=== PATIENT | female | born 1935 | race Hispanic/Latino ===

== ENCOUNTER 2019-05-02 05:56 | Day surgery (SDC) | payer MEDICARE, MEDICAID ==
[2019-05-01 11:33] VITALS: BMI 18.5
[2019-05-02 06:37] LABS: #Eosinphils 0.2 thou/uL (0.0-0.7); #Lymphocytes 1.1 thou/uL (1.20-3.40); #Monocytes 0.4 thou/uL (0.11-0.59); #Neutrophils 2.1 thou/uL (1.40-6.50); %Basophils 0.8 % (0.0-1.0); %Eosinophils 5.9 % (0.0-10.0); %Lymphocytes 28.2 % (21.0-51.0); %Monocytes 10.8 % (0.0-10.0); %Neutrophils 54.4 % (42.0-75.0); Hemoglobin 9.9 g/dL (12.0-16.0); Mean Corpuscular HGB CONC 32.4 g/dL (32.0-36.0); Mean Corpuscular Hemoglobin 33.1 pg (27.0-31.0); Mean Platelet Volume 7.4 fL (7.4-10.4); Platelet Count 155 thou/uL (130-400); RBC Distribution Width 13.3 % (11.5-14.5); White Blood Cell (WBC) Count 3.8 thou/uL (4.8-10.8)
[2019-05-02 07:00] LABS: Anion Gap 11 mmol/L (10-20); BUN (Urea Nitrogen) 18 mg/dL (9.8-20.1); Calc. Creatinine Clearance 28 mL/min (70-130); Calcium 9.2 mg/dL (7.8-10.44); Carbon Dioxide 26 mmol/L (23-31); Chloride 108 mmol/L (98-107); Estimated GFR-MDRD 52; Glucose 97 mg/dL (83-110); Potassium 3.7 mmol/L (3.5-5.1); Sodium 141 mmol/L (136-145)
--- NOTE | 2019-05-02 09:37 | OP ---
DATE OF PROCEDURE: 05/02/2019 PROCEDURE PERFORMED: Transesophageal echocardiogram. INDICATIONS: Cristiana Valle is an 83-year-old woman with a mass noted in the right atrium. DESCRIPTION OF PROCEDURE: The patient was taken to the PACU. The patient was sedated by Anesthesiology. A transesophageal probe was placed into the distal esophagus and stomach. Echocardiographic images were obtained. The transesophageal probe was removed. FINDINGS: 1. Normal left ventricular systolic function. 2. Normal aortic valve. 3. The mitral valve leaflets are redundant with mild prolapse. 4. Mild mitral regurgitation. 5. Mild tricuspid regurgitation. 6. A 0.7-cm mass was noted attached to the pacemaker lead in the right atrium. 7. Atherosclerotic debris in the descending aorta. IMPRESSION: A thin 0.7-cm mass noted attached to the right ventricular pacemaker lead suggestive of a vegetation, but cannot exclude thrombus. Job ID: [id number]
[2019-05-02] MEDS ORDERED: PROPOFOL 200 MG/20 ML VIAL ONE (14:43)
== END 2019-05-02 10:20 | disposition home or self-care (01) ==
LOC: CCL 05:56
PROVIDERS: ATTEND Internal Medicine Cardiovascular Disease
PROC: B24BZZ4 Ultrasonography of Heart with Aorta, Transesophageal (ICD-10-PCS; principal; 2019-05-02)
DX: I11.9 Hypertensive heart disease without heart failure (principal); I70.0 Atherosclerosis of aorta; I08.1 Rheumatic disorders of both mitral and tricuspid valves; I48.0 Paroxysmal atrial fibrillation; E03.9 Hypothyroidism, unspecified; I49.5 Sick sinus syndrome; G51.0 Bell's palsy; Z79.01 Long term (current) use of anticoagulants; Z79.899 Other long term (current) drug therapy; Z95.0 Presence of cardiac pacemaker
CPT/HCPCS: 36415; 80048; 85025; 87040; 93312; J2704

== ENCOUNTER 2019-05-18 13:02 | Emergency (ER) | payer MEDICARE, MEDICAID ==
--- NOTE | 2019-05-18 13:45 | RAD ---
RIGHT SHOULDER 3 VIEWS: Date: 05/18/19 HISTORY: Right shoulder pain. FINDINGS/IMPRESSION: No fracture, dislocation, or bony destruction is seen. There are mild degenerative changes in the acr omioclavicular joint. POS: DANIS
[2019-05-18] MEDS ORDERED: Ketorolac Tromethamine 30 MG/ML VIAL ONE (14:37)
== END 2019-05-18 15:15 | disposition home or self-care (01) ==
LOC: ERS 13:02
DX: M25.511 Pain in right shoulder (principal); D64.9 Anemia, unspecified; F03.90 Unspecified dementia, unspecified severity, without behavioral disturbance, psychotic disturbance, mood disturbance, and anxiety; I10 Essential (primary) hypertension; E03.9 Hypothyroidism, unspecified; G51.0 Bell's palsy; Z79.01 Long term (current) use of anticoagulants; Z79.899 Other long term (current) drug therapy
CPT/HCPCS: 96372; J1885

== ENCOUNTER 2019-06-01 17:36 | Emergency (ER) | payer MEDICARE ==
[2019-06-01] MEDS ORDERED: Ketorolac Tromethamine 30 MG/ML VIAL ONE (18:26)
--- NOTE | 2019-06-01 18:31 | RAD ---
Radiograph right shoulder 3 views: DATE: 06/01/2019 HISTORY: Right shoulder pain in 83-year-old female. FINDINGS: There is a Hill-Sachs defect at the lateral aspect of humeral head. No fracture, dislocation, or subl uxation. Degenerative changes at glenohumeral joint and AC joint are mild. Right subclavian pacemaker. No interval change overall since 05/18/2019. Osteopenia. IMPRESSION: 1. No acute fracture. 2. Hill-Sachs defect is evidence for previous anterior-inferior shoulder dislocation.
[2019-06-01] MEDS ORDERED: HYDROcodone/Acetaminophen 5/325 mg Tablet ONE ×2 (18:59→20:18)
--- NOTE | 2019-06-01 19:49 | CT ---
EXAM: CT right shoulder without contrast PROVIDED CLINICAL HISTORY: Pain COMPARISON: None FINDINGS: There is a large glenohumeral joint effusion. There is no evidence for fracture or other acute osseous abnormality. No lytic or blastic bony change s are seen. The glenohumeral relationship appears normal. The glenohumeral joint space is preserved. No significant regional degenerative change. Right-sided cardiac pacing device is noted. The visualized right lung is free of significant opacity. IMPRESSION: Large glenohumeral joint effusion without evidence for an acute osseous abnormality.
== END 2019-06-01 20:35 | disposition home or self-care (01) ==
LOC: ERS 17:36
DX: M25.411 Effusion, right shoulder (principal); I49.9 Cardiac arrhythmia, unspecified; I48.91 Unspecified atrial fibrillation; E03.9 Hypothyroidism, unspecified; D64.9 Anemia, unspecified; I10 Essential (primary) hypertension; F03.90 Unspecified dementia, unspecified severity, without behavioral disturbance, psychotic disturbance, mood disturbance, and anxiety
CPT/HCPCS: 96372; J1885

== ENCOUNTER 2019-07-06 11:02 | Outpatient (CLI) | payer MEDICARE ==
--- NOTE | 2019-07-06 12:03 | BD ---
EXAM: Bone densitometry using DEXA HISTORY: 83 yo female. Osteoporosis FINDINGS: L1--bone mineral density 0.661 g/sq cm; T score -3.0 ; Z score -0.5 L2--bone mineral density 0.815 g/sq cm; T score -1.9 ; Z score 0.8 L3--bone mineral density 0.930 g/sq cm; T score -1.4 ; Z score 1.5 L4--bone mineral density 0.833 g/sq cm; T score -2.1 ; Z score 0.9 Total L1-L4--bone mineral density 0.8, 0.6 g/sq cm; T score -2.1 ; Z score 0.7 Left femoral neck--bone mineral density0.560; T score -2.6 ; Z score -0.1 Total proximal left femur--bone mineral density 0.616; T score -2.7 ; Z score -0.4 IMPRESSION: Osteoporosis
== END 2019-07-06 11:03 | disposition home or self-care (01) ==
LOC: BICMAMMO 11:02
PROVIDERS: ATTEND Student in an Organized Health Care Education/Training Program
DX: Z13.820 Encounter for screening for osteoporosis (principal); M19.90 Unspecified osteoarthritis, unspecified site; M81.0 Age-related osteoporosis without current pathological fracture
CPT/HCPCS: 77080

== ENCOUNTER 2019-07-13 13:21 | Emergency (ER) | payer MEDICARE ==
[2019-07-13] MEDS ORDERED: HYDROcodone/Acetaminophen 5/325 mg Tablet ONE ×2 (13:47→14:38)
[2019-07-13] MEDS ORDERED: Ketorolac Tromethamine 30 MG/ML VIAL ONE (13:47)
[2019-07-13] MEDS ORDERED: Dexamethasone 10 MG/ML VIAL ONE (14:38)
--- NOTE | 2019-07-13 15:49 | RAD ---
Exam: XR Shoulder Rt 3 View STANDARD HISTORY: Right shoulder pain. COMPARISON: 06/01/2019 FINDINGS: Again noted is mild deformity involving the lateral aspect of the right humeral head unchanged from p rior exam. No fracture or dislocation is seen. Right subclavian cardiac pacemaking device remains in place. Views of the right shoulder are stable c ompared to prior exam. IMPRESSION: Stable views right shoulder without evidence of an acute osseous abnormality.
--- NOTE | 2019-07-13 15:50 | RAD ---
2 view chest: 07/13/2019] Comparison:10/01/2018 HISTORY: Dementia, right shoulder pain FINDINGS: Stable dual lead right-sided transvenous pacing device. No pneumothorax, pleural fluid, foc al consolidation, or alveolar edema. Heart and mediastinal contours are stable. There is atherosclerotic calcification of the abdominal aorta. IMPRESSION: No acute findings.
--- NOTE | 2019-07-13 16:08 | RAD ---
THREE VIEWS OF THE CERVICAL SPINE: 07/13/19 COMPARISON: None. HISTORY: Dementia and right shoulder pain. FINDINGS: Three views of the cervical spine shows severe degenerative changes throughout the cervical spine wit h intervertebral disc space narrowing and osteophyte formation. There is no evidence of acute fractur e or subluxation. No prevertebral soft tissue swelling is seen. Posterior facet arthrosis is also see n throughout the cervical spine. IMPRESSION: Severe degenerative changes in the cervical spine without acute osseous abnormality. POS: TPC
[2019-07-13 16:19] LABS: #Eosinphils 0.1 thou/uL (0.0-0.7); #Lymphocytes 1.1 thou/uL (1.20-3.40); #Monocytes 0.5 thou/uL (0.11-0.59); #Neutrophils 7.8 thou/uL (1.40-6.50); %Basophils 0.5 % (0.0-1.0); %Eosinophils 1.4 % (0.0-10.0); %Lymphocytes 11.3 % (21.0-51.0); %Monocytes 5.1 % (0.0-10.0); %Neutrophils 81.7 % (42.0-75.0); Hemoglobin 11.2 g/dL (12.0-16.0); Mean Corpuscular HGB CONC 32.4 g/dL (32.0-36.0); Mean Corpuscular Hemoglobin 34.1 pg (27.0-31.0); Mean Platelet Volume 7.2 fL (7.4-10.4); Platelet Count 241 thou/uL (130-400); RBC Distribution Width 14.2 % (11.5-14.5); Red Blood Cell (RBC) Count 3.28 mill/uL (4.20-5.40); White Blood Cell (WBC) Count 9.5 thou/uL (4.8-10.8)
[2019-07-13 16:35] LABS: ALT (SGPT) 16 U/L (8-55); AST (SGOT) 23 U/L (5-34); Albumin 4.7 g/dL (3.4-4.8); Alkaline Phosphatase 96 U/L (40-110); Anion Gap 17 mmol/L (10-20); BUN (Urea Nitrogen) 22 mg/dL (9.8-20.1); Bilirubin, Total 0.5 mg/dL (0.2-1.2); Calc. Creatinine Clearance 0 mL/min (70-130); Calcium 10.2 mg/dL (7.8-10.44); Carbon Dioxide 25 mmol/L (23-31); Chloride 102 mmol/L (98-107); Estimated GFR-MDRD 46; Globulin 3.5 g/dL (2.4-3.5); Glucose 142 mg/dL (83-110); Lipase 52 U/L (8-78); Protein, Total 8.2 g/dL (6.0-8.3); Sodium 140 mmol/L (136-145)
[2019-07-13 16:36] LABS: Bilirubin Negative (Negative); Blood, Urine Negative (Negative); Clarity Clear (Clear); Glucose, Urine (Dipstick) Normal (Negative); Leukocyte Negative Leu/uL (Negative); Nitrite Negative (Negative); Protein, Urine (Dipstick) 20 mg/dL (Neg-Trace); Urobilinogen Normal mg/dL (Less than 2)
[2019-07-13 16:41] LABS: Anisocytosis SLIGHT = 6-15 cells (100X) (0-5/hpf); MDiff Complete? YES; Macrocytosis SLIGHT = 6-15 cells (100X) (0-5/hpf); Platelet Morphology Comment Appears Adequate; Polychromasia SLIGHT = 2-3 cells (100X) (0-2/hpf)
== END 2019-07-13 16:53 | disposition home or self-care (01) ==
LOC: ERS 13:21
DX: M25.511 Pain in right shoulder (principal); I48.91 Unspecified atrial fibrillation; E03.9 Hypothyroidism, unspecified; D64.9 Anemia, unspecified; G51.0 Bell's palsy; I10 Essential (primary) hypertension; F03.90 Unspecified dementia, unspecified severity, without behavioral disturbance, psychotic disturbance, mood disturbance, and anxiety; Z86.73 Personal history of transient ischemic attack (TIA), and cerebral infarction without residual deficits; Z79.02 Long term (current) use of antithrombotics/antiplatelets; Z79.899 Other long term (current) drug therapy
CPT/HCPCS: 36415; 71046; 72040; 80053; 81003; 83690; 85025; 87086; 93005; 96372; J1100; J1885

== ENCOUNTER 2019-08-30 01:46 | Emergency (ER) | payer MEDICARE ==
[2019-08-30] MEDS ORDERED: Ketorolac Tromethamine 30 MG/ML VIAL ONE (01:57)
== END 2019-08-30 02:20 | disposition home or self-care (01) ==
LOC: ERS 01:46
DX: M25.511 Pain in right shoulder (principal); I48.91 Unspecified atrial fibrillation; E03.9 Hypothyroidism, unspecified; G51.0 Bell's palsy; D64.9 Anemia, unspecified; I10 Essential (primary) hypertension; F03.90 Unspecified dementia, unspecified severity, without behavioral disturbance, psychotic disturbance, mood disturbance, and anxiety; Z79.01 Long term (current) use of anticoagulants; Z79.899 Other long term (current) drug therapy
CPT/HCPCS: 96372; 99283; J1885

== ENCOUNTER 2019-09-25 18:10 | Emergency (ER) | payer MEDICARE ==
[2019-09-25] MEDS ORDERED: Morphine 4 MG/ML VIAL ONE (18:32)
--- NOTE | 2019-09-25 19:00 | RAD ---
PORTABLE CHEST: Indications: Right shoulder pain. Comparison: 07-13-2019 FINDINGS: Lung gomez are clear. Mild cardiomegaly is stable. Dual-lead pacemaker device is unchanged. Vascular markings normal. No acute lung process. There is deformity of the right humeral head suggesting old injury or surgery. AC joints are normally aligned. Mild degenerative changes at both shoulders. IMPRESSION: No acute process. POS: AGW
--- NOTE | 2019-09-25 19:02 | RAD ---
RIGHT SHOULDER TWO VIEWS: Comparison: 07-13-2019 FINDINGS: Deformity of the humeral head. There are degenerative change at the glenohumeral joint with spurring from the humeral head. Deformity is stable from prior exam and suggests old injury and/or surgery. Th e AC joint is normally aligned. There has been no interval change. IMPRESSION: Stable findings at right shoulder with degenerative change and deformities again noted. POS: AGW
== END 2019-09-25 19:42 | disposition home or self-care (01) ==
LOC: ERS 18:10
DX: M19.011 Primary osteoarthritis, right shoulder (principal); I49.9 Cardiac arrhythmia, unspecified; I48.91 Unspecified atrial fibrillation; E03.9 Hypothyroidism, unspecified; D64.9 Anemia, unspecified; G51.0 Bell's palsy; I10 Essential (primary) hypertension; F03.90 Unspecified dementia, unspecified severity, without behavioral disturbance, psychotic disturbance, mood disturbance, and anxiety; Z79.899 Other long term (current) drug therapy; Z79.01 Long term (current) use of anticoagulants
CPT/HCPCS: 71045; 96372; J2270

== ENCOUNTER 2019-10-03 12:23 | Emergency (ER) | payer MEDICARE ==
[2019-10-03] MEDS ORDERED: Morphine 4 MG/ML VIAL ONE (13:31)
[2019-10-03] MEDS ORDERED: Ondansetron ODT 4 MG TAB ONE (13:31)
== END 2019-10-03 14:05 | disposition home or self-care (01) ==
LOC: ERS 12:23
DX: G89.29 Other chronic pain (principal); M25.511 Pain in right shoulder; I49.9 Cardiac arrhythmia, unspecified; I48.91 Unspecified atrial fibrillation; E03.9 Hypothyroidism, unspecified; D64.9 Anemia, unspecified; I10 Essential (primary) hypertension; F03.90 Unspecified dementia, unspecified severity, without behavioral disturbance, psychotic disturbance, mood disturbance, and anxiety; Z79.899 Other long term (current) drug therapy; Z79.01 Long term (current) use of anticoagulants
CPT/HCPCS: 96372; 99283; J2270; Q0162

== ENCOUNTER 2019-10-07 16:14 | Emergency (ER) | payer MEDICARE ==
--- NOTE | 2019-10-07 17:05 | RAD ---
Right shoulder 3 views HISTORY: Shoulder pain. COMPARISON: 09/25/2019. FINDINGS: Acromioclavicular and glenohumeral alignment are maintained. Mild osteoarthritic changes ar e again demonstrated. Deformity with truncation of the lateral aspect of the humeral head involving the greater tuberosity is similar in appearance to the prior study. No aggressive osseous destruction. Partially visualized at the right lung base is an ill-defined area of increased parenchymal opacity. Right cardiac electronic device is partially visualized. IMPRESSION : Chronic findings of the right shoulder are stable. No acute osseous abnormalities are demonstrated New infiltrate at the partially visualized right lung base. Clinical correlation regarding other sign s and symptoms of right basilar pneumonitis is required. Active process at the right lung base could result in referred pain to the right shoulder.
--- NOTE | 2019-10-07 17:46 | RAD ---
Chest one view HISTORY: Pneumonia. COMPARISON: 09/25/2019. FINDINGS: Cardiac silhouette is magnified, enlarged, and partially obscured by patchy bibasilar paren chymal infiltrate. There is blunting of the left lateral costophrenic angle. Mediastinum is midline. Calcified granulomata are consistent with healed granulomatous disease. Pulmonary vasculature upper limits of normal. IMPRESSION : Patchy bibasilar infiltrates. Clinical correlation regarding other signs and symptoms of multifocal b ibasilar pneumonitis is required. Small left pleural effusion. Cardiomegaly.
[2019-10-07] MEDS ORDERED: Acetaminophen/Codeine 30-300mg Tablet ONE (18:04)
[2019-10-08 19:25] LABS: SARS-CoV-2 MS2 Positive; SARS-CoV-2 N Gene Negative; SARS-CoV-2 S Gene Negative; SARS-CoV-2 orf1ab Negative
== END 2019-10-07 18:03 | disposition home or self-care (01) ==
LOC: ERS 16:14
DX: M25.511 Pain in right shoulder (principal); I49.9 Cardiac arrhythmia, unspecified; I48.91 Unspecified atrial fibrillation; E03.9 Hypothyroidism, unspecified; D64.9 Anemia, unspecified; I10 Essential (primary) hypertension; F03.90 Unspecified dementia, unspecified severity, without behavioral disturbance, psychotic disturbance, mood disturbance, and anxiety; Z79.899 Other long term (current) drug therapy; Z79.01 Long term (current) use of anticoagulants; Z20.828 Contact with and (suspected) exposure to other viral communicable diseases
CPT/HCPCS: 71045; 73030; 99283; U0003; 87635

== ENCOUNTER 2020-03-12 12:51 | Emergency (ER) | payer MEDICARE ==
[2020-03-12 14:43] LABS: #Eosinphils 0.1 thou/uL (0.0-0.7); #Lymphocytes 0.8 thou/uL (1.20-3.40); #Monocytes 0.6 thou/uL (0.11-0.59); #Neutrophils 3.4 thou/uL (1.40-6.50); %Basophils 0.7 % (0.0-1.0); %Eosinophils 1.6 % (0.0-10.0); %Lymphocytes 16.5 % (21.0-51.0); %Monocytes 11.4 % (0.0-10.0); %Neutrophils 69.9 % (42.0-75.0); Mean Corpuscular HGB CONC 31.4 g/dL (32.0-36.0); Mean Corpuscular Hemoglobin 33.8 pg (27.0-31.0); Mean Platelet Volume 9.3 fL (7.4-10.4); Platelet Count 155 thou/uL (130-400); RBC Distribution Width 15.2 % (11.5-14.5); Red Blood Cell (RBC) Count 3.54 mill/uL (4.20-5.40); White Blood Cell (WBC) Count 4.9 thou/uL (4.8-10.8)
[2020-03-12 14:56] LABS: ALT (SGPT) 21 U/L (8-55); AST (SGOT) 31 U/L (5-34); Albumin 3.7 g/dL (3.4-4.8); Alkaline Phosphatase 84 U/L (40-110); Anion Gap 10 mmol/L (10-20); BUN (Urea Nitrogen) 15 mg/dL (9.8-20.1); Bilirubin, Total 0.9 mg/dL (0.2-1.2); Calc. Creatinine Clearance 0 mL/min (70-130); Calcium 8.5 mg/dL (7.8-10.44); Carbon Dioxide 28 mmol/L (23-31); Chloride 107 mmol/L (98-107); Estimated GFR-MDRD 52; Globulin 2.6 g/dL (2.4-3.5); Glucose 102 mg/dL (83-110); Potassium 4.1 mmol/L (3.5-5.1); Protein, Total 6.3 g/dL (6.0-8.3); Sodium 141 mmol/L (136-145)
[2020-03-12 14:59] LABS: Hypochromia SLIGHT = 6-15 cells (100X) (0-5/hpf); MDiff Complete? YES; Macrocytosis SLIGHT = 6-15 cells (100X) (0-5/hpf); Ovalocytes SLIGHT = 2-5 cells (100X) (0-1/hpf); Platelet Morphology Comment Appears Adequate; Polychromasia SLIGHT = 2-3 cells (100X) (0-2/hpf)
[2020-03-12 16:32] LABS: Bacteria/HPF None Seen HPF (None Seen); Bilirubin Negative (Negative); Blood, Urine Negative (Negative); Clarity Clear (Clear); Glucose, Urine (Dipstick) Normal (Negative); Ketone, Urine Negative (Negative); Leukocyte Negative Leu/uL (Negative); Nitrite Negative (Negative); Protein, Urine (Dipstick) 50 mg/dL (Neg-Trace); RBC/HPF 0-3 HPF (0-3); Squamous Epithelial 0-3 HPF (0-3); Urobilinogen 3 mg/dL (Less than 2); WBC/HPF 0-3 HPF (0-3); pH, Urine 5.5 (5.0-9.0)
--- NOTE | 2020-03-12 17:12 | CT ---
CT BRAIN WITHOUT CONTRAST: HISTORY:Increased dementia, declining mental status COMPARISON:None FINDINGS: There are foci of decreased attenuation in the periventricular white matter, consistent with chronic small vessel ischemic disease. There are changes of cortical atrophy and bilateral basal ganglia calcifications. No evidence of acute infarct, hemorrhage, midline shift or abnormal extra-axial fluid collections is seen. The ventricular size is appropriate and the basilar cisterns are patent. The bony calvarium is intact. The visualized paranasal sinuses are well aerated. IMPRESSION: No CT evidence of acute intracranial process.
--- NOTE | 2020-03-16 13:26 | EKG ---
Test Reason : Blood Pressure : / mmHG Vent. Rate : 109 BPM Atrial Rate : 300 BPM P-R Int : 000 ms QRS Dur : 072 ms QT Int : 338 ms P-R-T Axes : 000 108 037 degrees QTc Int : 455 ms Atrial fibrillation with rapid ventricular response with occasional ventricular-paced complexes Rightward axis Abnormal ECG Confirmed by AUTUMN LAUREN DO ([id number]), assistant editor VAERY SANDS ([id number]) on 03/16/2020 1:26:21 PM Referred By: Confirmed By:AUTUMN LAUREN DO
== END 2020-03-12 17:46 | disposition home or self-care (01) ==
LOC: ERS 12:51
DX: F03.90 Unspecified dementia, unspecified severity, without behavioral disturbance, psychotic disturbance, mood disturbance, and anxiety (principal); R53.1 Weakness; E03.9 Hypothyroidism, unspecified; I48.91 Unspecified atrial fibrillation; D64.9 Anemia, unspecified; I10 Essential (primary) hypertension; G51.0 Bell's palsy
CPT/HCPCS: 36415; 70450; 80053; 81003; 81015; 85025; 87086; 93005

== ENCOUNTER 2020-03-22 20:49 | Inpatient (IN) | payer MEDICARE, OTHER ==
[2020-03-22 21:30] LABS: #Eosinphils 0.1 thou/uL (0.0-0.7); #Monocytes 0.6 thou/uL (0.11-0.59); #Neutrophils 3.6 thou/uL (1.40-6.50); %Basophils 0.7 % (0.0-1.0); %Eosinophils 2.6 % (0.0-10.0); %Lymphocytes 18.1 % (21.0-51.0); %Monocytes 11.7 % (0.0-10.0); %Neutrophils 66.9 % (42.0-75.0); Hemoglobin 12.7 g/dL (12.0-16.0); Mean Corpuscular HGB CONC 32.1 g/dL (32.0-36.0); Mean Platelet Volume 8.8 fL (7.4-10.4); Platelet Count 162 thou/uL (130-400); RBC Distribution Width 15.3 % (11.5-14.5); Red Blood Cell (RBC) Count 3.73 mill/uL (4.20-5.40); White Blood Cell (WBC) Count 5.3 thou/uL (4.8-10.8)
--- NOTE | 2020-03-22 21:32 | RAD ---
PORTABLE CHEST: 03/22/20 HISTORY: Shortness of breath. COMPARISON: 10/07/19 exam. Heart size is enlarged. Pulmonary vessels are engorged. Some increased interstitial markings could be chronic or indicate a mild element of edema. There does appear to be some blunting to the right cost ophrenic angle. The left costophrenic angle is blunted. There is increased opacity in the left base. IMPRESSION: Cardiomegaly with mild vascular engorgement. There is left sided pleural effusion with more prominent left lower lobe parenchymal change. Still could be on the basis of atelectasis but infiltrate is not totally excluded. There is suggestion of a smaller right effusion and atelectasis. POS: OFF
[2020-03-22 21:46] LABS: ALT (SGPT) 20 U/L (8-55); AST (SGOT) 27 U/L (5-34); Albumin 3.6 g/dL (3.4-4.8); Alkaline Phosphatase 77 U/L (40-110); Anion Gap 12 mmol/L (10-20); BUN (Urea Nitrogen) 19 mg/dL (9.8-20.1); Bilirubin, Total 0.9 mg/dL (0.2-1.2); CK (CPK) 100 U/L (29-168); Calc. Creatinine Clearance 0 mL/min (70-130); Calcium 8.6 mg/dL (7.8-10.44); Carbon Dioxide 25 mmol/L (23-31); Chloride 110 mmol/L (98-107); Estimated GFR-MDRD 47; Globulin 2.5 g/dL (2.4-3.5); Glucose 117 mg/dL (83-110); Potassium 3.9 mmol/L (3.5-5.1); Protein, Total 6.1 g/dL (6.0-8.3); Sodium 143 mmol/L (136-145)
[2020-03-22] MEDS ORDERED: Diltiazem 125 MG/25 ML ONE (21:53)
[2020-03-22] MEDS ORDERED: rOPINIRole HCl 0.5 MG TAB PO SCH (22:15)
[2020-03-22] MEDS ORDERED: Aspirin Chewable 81 MG TAB ONE (22:16)
--- NOTE | 2020-03-22 23:18 | PDOC.FPRHP ---
- History of Present Illness Chief Complaint: SOB History of Present Illness: Patient is an 84 female with a history of paroxysmal afib, sick sinus syndrome with pacemaker, dementia, and CKD3 who presents to the ED with her daughter with complains of SOB since this am. The patient's daughter says the patient experienced lower extremity edema for the past 1 week. It was initially attributed to a side effect of seroquel and the patient was changed to halodol 2 days ago by PCP, Dr. Lenin Paez. She says the edema did not changed with the new medication. Starting this am, the patient experienced SOB at rest that worsened with movement, cough and palpitations. Pulse ox at home was 84%. Patient called PCP who instructed patient to come to ED for evaluation. Says she is now feeling well at baseline respiratory status. Denies headache, vision changes, chest pain, nausea, and abdominal pain. ED Course: In the ED, EKG showed Afib with RVR 145. ED provider reported administering 10mg diltiazem x 2, however only only 1 10mg dose recorded. - Allergies/Adverse Reactions Allergies Allergy/AdvReac Type Severity Reaction Status Date / Time No Known Allergies Allergy Verified 03/23/20 01:30 - Home Medications Medication Instructions Recorded Confirmed Type Apixaban [Eliquis] 2.5 mg PO DAILY 05/01/19 03/23/20 History Fluticasone Propionate [Flonase 1 spray EA NARE DAILY PRN 05/01/19 03/23/20 History Allergy Relief] Levothyroxine Sodium 100 mcg PO DAILY 05/01/19 03/23/20 History Memantine HCl 10 mg PO BID 05/01/19 03/23/20 History Metoprolol Tartrate [Lopressor] 50 mg PO DAILY 05/01/19 03/23/20 History Mirtazapine [Remeron Soltab] 45 mg PO DAILY 05/01/19 03/23/20 History rOPINIRole HCl [Requip] 1 mg PO BID 05/01/19 03/23/20 History traZODone HCl [Trazodone HCl] 50 mg PO HS 05/01/19 03/23/20 History - History PMHx: paroxysmal Afib, HTN, pacemaker, restless leg syndrome, vitamin B12 deficiency, hypothyroidism, sick sinus syndrome, OA, CKD3, osteoporosis, dementia PSHx: x 4, hysterectomy FHx: Noncontributory Social: Never smoker, No ETOH use, no drug use - Review of Systems General: denies: fever/chills, fatigue Eyes: denies: eye pain, vision changes ENT: denies: nasal congestion, rhinorrhea Respiratory: reports: cough. denies: shortness of breath Cardiovascular: reports: edema (lower extremity bilaterally). denies: chest pain, palpitation Gastrointestinal: denies: nausea, vomiting, abdominal pain Genitourinary: denies: dysuria, polyuria Skin: denies: rashes, jaundice Musculoskeletal: denies: pain Neurological: denies: syncope, weakness Psychological: denies: anxiety, depression - Vital signs BP: [155/93] HR: [140 in Afib] RR: [20] Tmax: [98] Pox: [95%]% on [RA] Wt: [46.176] - Physical Exam Constitutional: NAD, awake, alert and oriented -Constitutional: Thin HEENT: normocephalic and atraumatic, conjunctiva clear, MMM Neck: FROM, trachea midline Chest: no-tender to palpation, no lesions Heart: normal S1/S2 -Heart: Irregularly irregular. 3+ pitting edema, bilateral lower extremities up to knee Lungs: no respiratory distress -Lungs: Crackles in upper lung gomez. Minimal air movement at bases. Abdomen: soft, non-tender, bowel sounds present Musculoskeletal: normal structure, ROM grossly normal Neurological: no focal deficit Skin: no rash/lesions Heme/Lymphatic: no unusual bruising or bleeding Psychiatric: normal mood and affect FMR H&P: Results - Labs Result Diagrams: 03/22/20 21:12 03/22/20 21:12 Lab results: WBC 5.3 thou/uL (4.8-10.8) 03/22/20 21:12 Hgb 12.7 g/dL (12.0-16.0) 03/22/20 21:12 Hct 39.5 % (36.0-47.0) 03/22/20 21:12 MCV 106.0 fL (78.0-98.0) H 03/22/20 21:12 Plt Count 162 thou/uL (130-400) 03/22/20 21:12 Neutrophils % 66.9 % (42.0-75.0) 03/22/20 21:12 Sodium 143 mmol/L (136-145) 03/22/20 21:12 Potassium 3.9 mmol/L (3.5-5.1) 03/22/20 21:12 Chloride 110 mmol/L (98-107) H 03/22/20 21:12 Carbon Dioxide 25 mmol/L (23-31) 03/22/20 21:12 BUN 19 mg/dL (9.8-20.1) 03/22/20 21:12 Creatinine 1.11 mg/dL (0.6-1.1) H 03/22/20 21:12 Glucose 117 mg/dL (83-110) H 03/22/20 21:12 Calcium 8.6 mg/dL (7.8-10.44) 03/22/20 21:12 Total Bilirubin 0.9 mg/dL (0.2-1.2) 03/22/20 21:12 AST 27 U/L (5-34) 03/22/20 21:12 ALT 20 U/L (8-55) 03/22/20 21:12 Alkaline Phosphatase 77 U/L (40-110) 03/22/20 21:12 Creatine Kinase 100 U/L (29-168) 03/22/20 21:12 B-Natriuretic Peptide 1014.9 pg/mL (0-100) H 03/22/20 21:12 Serum Total Protein 6.1 g/dL (6.0-8.3) 03/22/20 21:12 Albumin 3.6 g/dL (3.4-4.8) 03/22/20 21:12 - EKG Interpretation EKG: Afib with RVR, HR 145 FMR H&P: A/P - Plan Afib with RVR Hx paroxsmal afib Patient reports tachycardia x 1 day. Trop 0.026 -> 0.018. EKG showed Afib with RVR, HR 145. s/p dilt 10 mg in ED with reported rate control. Currently HR 140s. -Admit to tele inpatient -Mag, phos, TSH level -Continue home metoprolol -Continue home eliquis -Dilt drip for better rate control -Echo in am -Likely cardiology consult s/p echo result Concern for new onset CHF Symptoms concerning for CHF presentation. BNP 1014.9. CXR showed cardiomegaly, mild vascular engorgement, L pleural effusion, small R effusion. s/p Lasix 40mg. -Strict I&Os -Monitor for fluid overload -Start Lasix 40mg daily -Echo in am for further investigation -Risk stratification labs - A1C, TSH, lipid CKD3 Cr 1.11, appears at baseline -Monitor with am BMP Restless leg syndrome -Continue home meds Vitamin B12 deficiency Hgb 12.7, MCV 106 -Is not currently taking supplementation -Monitor Hgb with am CBC Hypothyroidism -Continue home meds Dementia Lives with daughter who is MPOA -Continue home meds Sick sinus syndrome with pacemaker placement Osteoarthritis Osteoporosis -Aware PCP: [facility]KE[facility] - Dr. Lenin Paez Code: FULL DVT ppx: Home eliquis Dispo: admit to tele inpatient, expected LOS > 48 hours FMR H&P: Upper Level - Plan Date/Time: 03/22/20 [id number] ILaura, have evaluated this patient and agree with findings/plan as outlined by marketing intern resident. Pertinent changes/additions are listed here. 84 yo F with PMH SSS s/p pacemaker, afib on anticoagulation presents to ED after recommendation by PCP with elevated outpatient BNP, edema and tachycardia. History obtained from daughter. Reports 1 week hx increasing BLE edema. Today she developed SOB and cough as well. Patient has no complaint currently. Denies chest pain. On telemetry is back in afib RVR, rate 140s. She lives with daughter at home. Ambulates without assistance. In ED received lasix, ropinirole, asa, dilt x2 PMH includes: SSS s/p pacemaker, hypothyroid, dementia, HTN, bells palsy PE: Gen: NAD, sitting up in bed comfortably HEENT: Moist MM Heart: irregularly irregular, tachycardic Lungs: No Wheezing, crackles, decreased breath sounds at bases, No increased work of breathing Abd: soft, nontender Ext: no cyanosis, 3+ pitting edema BLE, L >R Afib with RVR - s/p dilt 10 x2 in ED - Monitor on telemetry, rate had reportedly normalized in ED however currently in RVR rate 140s on telemetry. Start dilt gtt - Continue home metoprolol and eliquis Concern for new onset CHF - BNP 1014 - CXR with cardiomegaly, mild vascular engorgement, L pleural effusion, small R effusion - No known hx CAD - Trop neg x2 - s/p lasix 40 in ED, will continue lasix 40 IV for now - Monitor strict I/Os - Echo ordered, pending result will likely need cardiology consult. Dr. Montes De Oca is her director of rot[employer]. - Check TSH, A1c, lipids. Hgb is 12. Macrocytosis - Hx of vitamin B12 deficiency though not on supplementation. Hgb is 12 CKD3, at baseline CODE: FULL Attending: PCP: Jess Dispo: admit to telemetry inpatient
[2020-03-23] MEDS ORDERED: Furosemide 40 MG/4 ML VIAL ONE (00:08)
[2020-03-23 01:09] LABS: Troponin I 0.018 ng/mL (< 0.028)
[2020-03-23] MEDS ORDERED: Acetaminophen 325 MG TAB PO PRN (01:10)
[2020-03-23] MEDS ORDERED: Ondansetron PF 4 MG/2 ML Vial IVP PRN (01:10)
[2020-03-23] MEDS ORDERED: Ondansetron ODT 4 MG TAB PO PRN (01:10)
[2020-03-23 01:42] VITALS: BMI 19.8
[2020-03-23] MEDS ORDERED: Diltiazem 125 MG in Sodium Chloride 0.9% 100 ML IVPB SCH (02:00)
[2020-03-23 04:10] LABS: #Eosinphils 0.1 thou/uL (0.0-0.7); #Lymphocytes 0.7 thou/uL (1.20-3.40); #Monocytes 0.4 thou/uL (0.11-0.59); #Neutrophils 3.7 thou/uL (1.40-6.50); %Basophils 0.8 % (0.0-1.0); %Eosinophils 2.2 % (0.0-10.0); %Lymphocytes 14.6 % (21.0-51.0); %Monocytes 8.7 % (0.0-10.0); %Neutrophils 73.7 % (42.0-75.0); Hemoglobin 12.8 g/dL (12.0-16.0); Mean Corpuscular HGB CONC 31.4 g/dL (32.0-36.0); Mean Platelet Volume 8.6 fL (7.4-10.4); Platelet Count 152 thou/uL (130-400); RBC Distribution Width 15.2 % (11.5-14.5); Red Blood Cell (RBC) Count 3.75 mill/uL (4.20-5.40)
[2020-03-23 04:23] LABS: Hemoglobin A1c 5.5 % (4.0-6.0)
[2020-03-23 04:36] LABS: Troponin I 0.024 ng/mL (< 0.028)
[2020-03-23 04:40] LABS: Phosphorus 3.2 mg/dL (2.3-4.7)
[2020-03-23 04:41] LABS: Anion Gap 16 mmol/L (10-20); BUN (Urea Nitrogen) 18 mg/dL (9.8-20.1); Calc. Creatinine Clearance 29 mL/min (70-130); Calcium 9.1 mg/dL (7.8-10.44); Carbon Dioxide 25 mmol/L (23-31); Cardiac Risk 2.9 (Less than 4.5); Chloride 104 mmol/L (98-107); Cholesterol 140 mg/dl (< 200 Desired); Estimated GFR-MDRD 49; Glucose 110 mg/dL (83-110); HDL Cholesterol 49 mg/dL (>60 Neg Risk); LDL Cholesterol, Calculated 70 mg/dL; Magnesium 2.1 mg/dL (1.6-2.6); Sodium 141 mmol/L (136-145); Triglycerides 104 mg/dL (Less than 150)
[2020-03-23] MEDS: Levothyroxine Sodium 125 MCG TAB PO SCH (06:12)
--- NOTE | 2020-03-23 06:31 | PDOC.FM ---
- Subjective Subjective: Clare(regan)kayla Loya is doing well this morning. Telemetry has shown her in Afib, Aflutter with RVR, and Aflutter. She is still on a Diltiazem drip at 10mL/h. - Objective Vital Signs & Weight: Vital Signs (12 hours) Temp Pulse Resp BP Pulse Ox 03/23/20 03:30 98.0 F 130 H 16 143/69 H 94 L 03/23/20 01:51 96 03/23/20 01:12 97.6 F 120 H 17 153/99 H 96 Weight Weight 46.176 kg I&O: 03/21/20 03/22/20 03/23/20 06:59 06:59 06:59 Intake Total 40 Output Total 1475 Balance -1435 Result Diagrams: 03/23/20 03:54 03/23/20 03:54 Phys Exam - Physical Examination Constitutional: NAD (sitting up comfortably in bed) Frail. Pacemaker on R chest Minimal basilar crackles b/l Cardiovascular: no significant murmur Irregular rhythm Musculoskeletal: no edema, pulses present Psychiatric: normal affect Skin: no rash Dx/Plan - Plan Plan: Afib with RVR - Hx of paroxsmal afib - Admit to tele inpatient - Mag, phos nml - TSH elev at 8.5 - Change Metoprolol tartrate to Metoprolol succinate in the setting of possible CHF - Dilt drip @ 10mL/h - Possible cause of CHF - Echo ordered - Likely cardiology consult s/p echo result Concern for new onset CHF - BNP 1014.9 - CXR showed cardiomegaly, mild vascular engorgement, L pleural effusion, small R effusion. - Strict I&Os Balance -1435mL s/p Lasix 40mg - Monitor for fluid overload - Lasix 40mg - A1c, lipids nml - TSH elev, as above - Possible cause for AFib exacerbation - Echo in am for further investigation CKD3 - Cr 1.11, appears to be baseline - Monitor with am BMP Restless leg syndrome - MD aware - Continue home meds Vitamin B12 deficiency - MCV 106 - Is not currently taking supplementation - Monitor Hb with am CBC Hypothyroidism - Continue home meds Dementia - Lives with daughter who is MPOA - Continue home meds Sick sinus syndrome with pacemaker placement Osteoarthritis Osteoporosis - Aware PCP: [facility]KE[facility] - Dr. B. Paez Code: FULL DVT ppx: Home CORTES floress Diet: HH, low Na Dispo: admit to tele inpatient, expected LOS > 48 hours
[2020-03-23] MEDS ORDERED: Furosemide 40 MG/4 ML VIAL SLOW IVP SCH (09:00)
[2020-03-23] MEDS ORDERED: Metoprolol Tartrate 50 MG TAB PO SCH (09:00)
[2020-03-23] MEDS: Apixaban 2.5 MG TAB PO SCH ×2 (09:17→20:45)
[2020-03-23 09:42] LABS: Hemoglobin 12.9 g/dL (12.0-16.0); Platelet Count 155 thou/uL (130-400)
[2020-03-23] MEDS: Fluticasone Propionate Nasal Spray 16 gm Bottle NASAL SCH (11:04)
[2020-03-23 12:03] LABS: SARS-CoV-2 MS2 Positive; SARS-CoV-2 N Gene Negative; SARS-CoV-2 S Gene Negative; SARS-CoV-2 by NAA Not Detected (NotDetected); SARS-CoV-2 orf1ab Negative
[2020-03-23] MEDS: Amiodarone 450 MG in Dextrose 5% in Water 250 ML IVPB SCH (16:30)
--- NOTE | 2020-03-23 16:34 | CON ---
DATE OF CONSULTATION: 03/23/2020 REASON FOR CONSULTATION: Atrial fibrillation with RVR. PRIMARY RADIOLOGY SPECIAL PROCEDURE TECH: Dr. Luis Antonio Montes De Oca. HISTORY OF PRESENT ILLNESS: Ms. Loya is a very pleasant 84-year-old white female, who comes to the hospital for shortness of breath. She started noticing shortness of breath on the morning of her admission. She noticed worsening lower extremity edema for the last week, was initially attributed to Seroquel. This was changed to Haldol. However, edema just worsened and shortness of breath started, so she was brought in. She was noted to have a pulse ox of 84%, so she was admitted for possible heart failure. Denies any chest pain, tightness, or pressure. In the ER, she was found to be in atrial fibrillation and RVR with a heart rate in the 140s to 150s. She was put on a diltiazem drip and admitted with IV Lasix. On my evaluation, Ms. Loya feels a lot better. She has urinated quite a bit from the IV Lasix and her edema has significantly improved and she is breathing a lot better. Still requiring home oxygen supplementation. PAST MEDICAL HISTORY: 1. Paroxysmal atrial fibrillation. 2. History of sick sinus syndrome, status post pacemaker placement as a [facility] placed in October 2017 at [facility]. 3. Restless legs syndrome. 4. Vitamin B12 deficiency. 5. Hypothyroidism. 6. Osteoarthritis. 7. Chronic kidney disease, stage 3. 8. Osteoporosis. 9. Dementia. PAST SURGICAL HISTORY: 1. x4. 2. Hysterectomy. FAMILY HISTORY: Noncontributory. SOCIAL HISTORY: No alcohol, tobacco, or drugs. OUTPATIENT MEDICATIONS: 1. Eliquis 2.5 mg twice a day. 2. Fluticasone. 3. Levothyroxine 100 mcg a day. 4. Memantine. 5. Metoprolol succinate 50 mg once a day. 6. Mirtazapine 45 mg a day. 7. Ropinirole 1 mg b.i.d. 8. Trazodone 50 mg at bedtime. ALLERGIES: NO KNOWN DRUG ALLERGIES. REVIEW OF SYSTEMS: A 12-point review of systems was done and was found to be negative other than stated in history of present illness. PHYSICAL EXAMINATION: VITAL SIGNS: Temperature 98.4, pulse 88, respiratory rate 18, saturations 92% on room air, blood pressure is 119/77. GENERAL: Awake, alert, oriented to person and place, some difficulty with time, in no distress. HEENT: Normocephalic, atraumatic. NECK: Supple. LUNGS: Clear. CARDIOVASCULAR: Irregularly irregular. Heart rate in the 80s. ABDOMEN: Soft. Positive bowel sounds. EXTREMITIES: No edema. SKIN: Warm and dry. LABORATORY DATA: Laboratory work was reviewed. White count of 5, hemoglobin of 12, hematocrit 39, platelet count of 162. Chemistries were completely unremarkable. Troponin was negative x3. Creatinine is 0.98 with GFR 54. TSH was 8.5. LDL of 70, and triglycerides of 104. COVID-19 PCR serologies were not detected. Echocardiogram showed an EF of 50% to 55%. Atrial fibrillation during study. Dilated RV with normal RV systolic function, severely dilated right and left atria. RVSP was 35 mmHg. There was a small pericardial effusion without tamponade and a large pleural effusion. Telemetry monitoring was reviewed. ASSESSMENT: 1. [id number] diastolic heart failure. 2. Atrial fibrillation with rapid ventricular response. 3. History of sick sinus syndrome, status post pacemaker placement. 4. Hypothyroidism. PLAN: 1. Agree with continued IV diuresis with Lasix. I would switch to twice a day for better diuresis. 2. Continue Eliquis for stroke prophylaxis at current dose. 3. We will switch diltiazem to amiodarone to try to start her on antiarrhythmic to try to keep her out of atrial fibrillation in the future. 4. Hopefully, she will convert on her own when she is more euvolemic. Otherwise, she may require cardioversion. We will see how she evolves in the next few days. Thank you for letting us to participate in the care of your patient. We will follow. Job ID: [id number]
[2020-03-23] MEDS ORDERED: Fluticasone Propionate Nasal Spray 16 gm Bottle NASAL PRN (16:57)
[2020-03-23] MEDS: rOPINIRole HCl 1 MG TAB PO SCH (20:45)
[2020-03-23] MEDS: traZODone HCl 50 MG TAB PO SCH (20:45)
[2020-03-23] MEDS: Haloperidol 1 MG TAB PO SCH (20:45)
[2020-03-23] MEDS: Furosemide 40 MG/4 ML VIAL SLOW IVP SCH (20:46)
[2020-03-24 04:16] LABS: #Eosinphils 0.2 thou/uL (0.0-0.7); #Lymphocytes 0.8 thou/uL (1.20-3.40); #Monocytes 0.6 thou/uL (0.11-0.59); #Neutrophils 3.4 thou/uL (1.40-6.50); %Basophils 0.6 % (0.0-1.0); %Eosinophils 4.3 % (0.0-10.0); %Lymphocytes 16.7 % (21.0-51.0); %Monocytes 10.9 % (0.0-10.0); %Neutrophils 67.6 % (42.0-75.0); Hemoglobin 12.6 g/dL (12.0-16.0); Mean Corpuscular HGB CONC 32.6 g/dL (32.0-36.0); Mean Corpuscular Hemoglobin 34.5 pg (27.0-31.0); Mean Platelet Volume 9.2 fL (7.4-10.4); Platelet Count 171 thou/uL (130-400); RBC Distribution Width 15.1 % (11.5-14.5); Red Blood Cell (RBC) Count 3.64 mill/uL (4.20-5.40)
[2020-03-24 04:30] LABS: Anion Gap 14 mmol/L (10-20); BUN (Urea Nitrogen) 19 mg/dL (9.8-20.1); Calc. Creatinine Clearance 25 mL/min (70-130); Calcium 8.3 mg/dL (7.8-10.44); Carbon Dioxide 33 mmol/L (23-31); Chloride 98 mmol/L (98-107); Estimated GFR-MDRD 43; Glucose 106 mg/dL (83-110); Sodium 142 mmol/L (136-145)
[2020-03-24 04:55] LABS: Potassium 2.9 mmol/L (3.5-5.1)
[2020-03-24] MEDS: Levothyroxine Sodium 125 MCG TAB PO SCH (05:50)
[2020-03-24] MEDS ORDERED: Potassium Chloride 40 MEQ in Sodium Chloride 0.9% 250 ML 250 ML IVPB SCH (06:00)
--- NOTE | 2020-03-24 06:07 | PDOC.FM ---
- Subjective Subjective: Mrs. Loya is tired this morning so she is not answering a lot of questions but her daughter states she has not been complaining of SOB/dyspnea/CP. She has been diuresing well and still has a hurd in place because she does not trust the pure wick. Her daughter is concerned about having her on Lasix because she feels the pt doesn't drink a lot of fluids to begin with and she is worried about causing dehydration. - Objective Vital Signs & Weight: Vital Signs (12 hours) Temp Pulse Resp BP Pulse Ox 03/24/20 03:45 98.1 F 91 15 112/58 L 96 03/23/20 23:30 110/67 03/23/20 19:30 98.1 F 90 20 108/54 L 95 Weight Weight 42.184 kg I&O: 03/22/20 03/23/20 03/24/20 06:59 06:59 06:59 Intake Total 40 876 Output Total 1475 2250 Balance -1435 -1374 Result Diagrams: 03/24/20 03:43 03/24/20 03:43 Phys Exam - Physical Examination Constitutional: NAD (sleeping comfortably, easy to arouse, quick to fall asleep) Extremely thin and frail-appearing Neck: supple Respiratory: no rales, clear to auscultation bilateral Cardiovascular: RRR, no significant murmur Gastrointestinal: soft, non-tender, no distention Musculoskeletal: no edema Neurological: non-focal, moves all 4 limbs Psychiatric: normal affect Skin: no rash Dx/Plan - Plan Plan: Afib with RVR - Hx of paroxsmal afib - Possible cause for new-onset CHF - Cardiology consulted, appreciate recs Changed from Diltiazem drip to oral Amiodarone - Changing Lasix from 40 BID to 80 daily Hypokalemia - Due to diuresis - Replaced with 40mEq IV this am - Started 40mg qam starting tomorrow - Will continue to monitor with am BMPs and replace as indicated in electrolyte replacement protocol Concern for new onset CHF - Possible cause for AFib exacerbation - Strict I&Os Monitor for fluid overload - Lasix 80mg daily - Echo showed EF 50-55%, dilated RV, severely dialted b/l atria - Cardiology consulted, appreciate recs CKD3 - Cr 1.11, appears to be baseline - Monitor with am BMP Restless leg syndrome - MD aware - Continue home meds Vitamin B12 deficiency - MCV 106 - Is not currently taking supplementation - Monitor Hb with am CBC Hypothyroidism - Continue home meds Dementia - Lives with daughter who is MPOA - Continue home meds - Delirium precautions Sick sinus syndrome with pacemaker placement Osteoarthritis Osteoporosis - Aware PCP: [facility] - Dr. Lenin Paez Code: FULL DVT ppx: Home eliquis, SCDs Diet: HH, low Na Dispo: admit to tele inpatient, expected LOS > 48 hours
[2020-03-24] MEDS: Mirtazapine 15 MG Soltab PO SCH (08:46)
[2020-03-24] MEDS: Apixaban 2.5 MG TAB PO SCH ×2 (08:46→20:30)
[2020-03-24] MEDS: Furosemide 40 MG/4 ML VIAL SLOW IVP SCH (08:47)
[2020-03-24] MEDS: Fluticasone Propionate Nasal Spray 16 gm Bottle NASAL SCH (08:47)
[2020-03-24] MEDS ORDERED: Levothyroxine Sodium 125 MCG TAB PO SCH (09:00)
[2020-03-24] MEDS ORDERED: Furosemide 80 MG TAB PO SCH (09:15)
[2020-03-24 14:12] LABS: Anion Gap 17 mmol/L (10-20); BUN (Urea Nitrogen) 17 mg/dL (9.8-20.1); Calc. Creatinine Clearance 20 mL/min (70-130); Calcium 8.9 mg/dL (7.8-10.44); Carbon Dioxide 29 mmol/L (23-31); Chloride 97 mmol/L (98-107); Estimated GFR-MDRD 37; Glucose 97 mg/dL (83-110); Sodium 139 mmol/L (136-145)
--- NOTE | 2020-03-24 15:44 | PDOC.CPN ---
- Subjective Date: 03/24/20 Time: 15:40 Interval history: No new issues. She still requires oxygen supplementation. - Review of Systems General: denies: fever/chills, weight/appetite/sleep changes, night sweats, fatigue Respiratory: denies: cough, congestion, shortness of breath, exercise intolerance Cardiovascular: denies: chest pain, palpitation, edema, paroxysmal nocturnal dyspnea, orthopnea Gastrointestinal: denies: nausea, vomiting, diarrhea, constipation, abd pain, GI bleeding Musculoskeletal: denies: pain, tenderness, stiffness, swelling, arthr itis/arthralgias Neurological: denies: numbness, syncope, seizure, weakness - Objective Allergies/Adverse Reactions: Allergies Allergy/AdvReac Type Severity Reaction Status Date / Time No Known Allergies Allergy Verified 03/23/20 01:30 Visit Medications: Current Medications Acetaminophen (Acetaminophen 325 Mg Tab) 650 mg PO Q4H PRN PRN Reason: Headache/Fever/Mild Pain (1-3) Apixaban (Apixaban 2.5 Mg Tab) 2.5 mg PO BID [facility] Last Admin: 03/24/20 08:46 Dose: 2.5 mg Documented by: Fluticasone Propionate (Fluticasone Propionate Nasal Baker 16 Gm Bottle) 0 gm NASAL DAILY [facility] Last Admin: 03/24/20 08:47 Dose: 1 spray Documented by: Fluticasone Propionate (Fluticasone Propionate Nasal Baker 16 Gm Bottle) 0 gm NASAL DAILY PRN PRN Reason: Allergies Furosemide (Furosemide 100 Mg/10 Ml Vial) 80 mg SLOW IVP DAILY [facility] Haloperidol (Haloperidol 1 Mg Tab) 2 mg PO HS [facility] Last Admin: 03/23/20 20:45 Dose: 2 mg Documented by: Amiodarone HCl 450 mg/ (Dextrose/Water) 259 mls @ 0 mls/hr IVPB INF [facility]; Protocol Last Admin: 03/23/20 16:30 Dose: 259 mls Documented by: Levothyroxine Sodium (Levothyroxine Sodium 125 Mcg Tab) 125 mcg PO 0600 [facility] Last Admin: 03/24/20 05:50 Dose: Not Given Documented by: Memantine (Memantine Hcl 10 Mg Tab) 10 mg PO BID [facility] Last Admin: 03/24/20 08:45 Dose: 10 mg Documented by: Metoprolol Succinate (Metoprolol Succinate Xl 50 Mg Tab) 50 mg PO DAILY [facility] Last Admin: 03/24/20 08:46 Dose: 50 mg Documented by: Mirtazapine (Mirtazapine 15 Mg Soltab) 45 mg PO DAILY [facility] Last Admin: 03/24/20 08:46 Dose: 45 mg Documented by: Ondansetron HCl (Ondansetron Odt 4 Mg Tab) 4 mg PO Q6H PRN PRN Reason: Nausea/Vomiting Ondansetron HCl (Ondansetron Pf 4 Mg/2 Ml Vial) 4 mg IVP Q6H PRN PRN Reason: Nausea/Vomiting Potassium Chloride (Potassium Chloride 20 Meq Tab) 40 meq PO QA[facility] Ropinirole HCl (Ropinirole Hcl 1 Mg Tab) [address] [facility] Last Admin: 03/23/20 20:45 Dose: 1 mg Documented by: Trazodone HCl (Trazodone Hcl 50 Mg Tab) [address] [facility] Last Admin: 03/23/20 20:45 Dose: 100 mg Documented by: Vital Signs & Weight: Vital Signs Temp Pulse Resp BP BP BP Pulse Ox 03/24/20 11:25 122/76 125/75 03/24/20 10:58 97.7 F 115 H 15 138/89 99 03/24/20 09:17 95 03/24/20 07:24 96.9 F L 80 15 106/60 97 03/24/20 03:45 98.1 F 91 15 112/58 L 96 Weight 93 lb - Physical Exam General: no apparent distress HEENT: mucus membranes moist Neck: supple neck Cardiac: irregularly regular Lungs: clear to auscultation Neuro: no lateralizing findings Abdomen: active bowel sounds Extremities: no edema Skin: clear Musculoskeletal: no pain - Labs Result Diagrams: 03/24/20 03:43 03/24/20 13:53 Troponin/CKMB Troponin I 0.024 ng/mL (< 0.028) 03/23/20 03:54 - Telemetry Supraventricular conduction: atrial fibrillation - Assessment/Plan Assessment/Plan: 1. Afib RVR. 2. Acute on chronic diastolic heart failure. 3. Presence of a PPM for SSS. 4. Hypothyroidism. PLAN: - Continue amiodarone drip. - Will increase BB for better rate control. - May need Cardioversion if she does not convert on her own in next few days. - Eliquis for stroke prophylaxis.
[2020-03-24] MEDS ORDERED: Furosemide 40 MG/4 ML VIAL SLOW IVP SCH (16:15)
[2020-03-24] MEDS: Amiodarone 450 MG in Dextrose 5% in Water 250 ML IVPB SCH (16:39)
[2020-03-24] MEDS: rOPINIRole HCl 1 MG TAB PO SCH (20:30)
[2020-03-24] MEDS: traZODone HCl 50 MG TAB PO SCH (20:30)
[2020-03-24] MEDS: Haloperidol 1 MG TAB PO SCH (20:30)
[2020-03-25 04:05] LABS: #Basophils 0.1 thou/uL (0.0-0.2); #Eosinphils 0.2 thou/uL (0.0-0.7); #Lymphocytes 1.2 thou/uL (1.20-3.40); #Monocytes 0.7 thou/uL (0.11-0.59); #Neutrophils 3.7 thou/uL (1.40-6.50); %Basophils 1.1 % (0.0-1.0); %Lymphocytes 20.7 % (21.0-51.0); %Monocytes 12.2 % (0.0-10.0); Hemoglobin 13.2 g/dL (12.0-16.0); Mean Corpuscular HGB CONC 32.9 g/dL (32.0-36.0); Mean Corpuscular Hemoglobin 34.4 pg (27.0-31.0); Mean Platelet Volume 9.8 fL (7.4-10.4); Platelet Count 202 thou/uL (130-400); RBC Distribution Width 15.1 % (11.5-14.5); Red Blood Cell (RBC) Count 3.85 mill/uL (4.20-5.40); White Blood Cell (WBC) Count 5.9 thou/uL (4.8-10.8)
[2020-03-25 04:23] LABS: Anion Gap 15 mmol/L (10-20); BUN (Urea Nitrogen) 25 mg/dL (9.8-20.1); Calc. Creatinine Clearance 17 mL/min (70-130); Calcium 8.5 mg/dL (7.8-10.44); Carbon Dioxide 30 mmol/L (23-31); Chloride 97 mmol/L (98-107); Estimated GFR-MDRD 30; Glucose 111 mg/dL (83-110); Potassium 3.4 mmol/L (3.5-5.1); Sodium 139 mmol/L (136-145)
--- NOTE | 2020-03-25 06:06 | PDOC.FM ---
- Subjective Subjective: Mrs. Loya is doing well this morning. Her daughter states she has not been complaining of SOB/dyspnea/CP/palpitations. Telemetry shows she converted to NSR at about 0500 this morning and she continues to be in it. She was real sleepy again this morning and I discussed delirium precautions with her. - Objective Vital Signs & Weight: Vital Signs (12 hours) Temp Pulse Resp BP Pulse Ox 03/25/20 03:48 98.3 F 95 18 95/55 L 94 L 03/24/20 19:15 97.9 F 115 H 20 109/67 95 Weight Weight 39.689 kg I&O: 03/23/20 03/24/20 03/25/20 06:59 06:59 06:59 Intake Total 40 1315 480 Output Total 1475 3189 1121 Balance -1435 -2510 -645 Result Diagrams: 03/25/20 03:45 03/25/20 03:45 Phys Exam - Physical Examination Constitutional: NAD (sleeping comfortably, easily arousable) Neck: supple, full ROM Respiratory: no rales, clear to auscultation bilateral Cardiovascular: RRR, no significant murmur Pacemaker in place on R, unchanged Gastrointestinal: no distention Musculoskeletal: no edema, pulses present Neurological: non-focal, moves all 4 limbs Psychiatric: normal affect Skin: no rash Dx/Plan - Plan Plan: Afib with RVR - Hx of paroxsmal afib - Possible cause for new-onset CHF - Cardiology consulted, appreciate recs - Converted to NSR at 0500 this am DARRYL - Likely 2/2 diuresis - Hold Lasix today. Consider restarting tomorrow - Order Mg Hypokalemia - Due to diuresis, resolved - 40mg PO qam starting tomorrow - Will continue to monitor with am BMPs and replace as indicated in electrolyte replacement protocol Concern for new onset CHF - Possible cause for AFib exacerbation - Strict I&Os Monitor for fluid overload - Hold Lasix, as above - Echo showed EF 50-55%, dilated RV, severely dilated b/l atria - Cardiology consulted, appreciate recs CKD3 - Cr 1.11, appears to be baseline - Monitor with am BMP Restless leg syndrome - MD aware - Continue home meds Vitamin B12 deficiency - MCV 106 - Is not currently taking supplementation - Monitor Hb with am CBC Hypothyroidism - Continue home meds Dementia - Lives with daughter who is MPOA - Continue home meds - Delirium precautions Sick sinus syndrome with pacemaker placement Osteoarthritis Osteoporosis - Aware PCP: HAKEEM Paez Code: FULL DVT ppx: Home eliquis, SCDs Diet: HH, low Na Dispo: admit to tele inpatient, expected LOS > 48 hours Addendum - Attending - Attending Attestation Date/Time: 03/25/20 7045 I personally evaluated the patient and discussed the management with Dr. Jah Muller. I agree with the History, Examination, Assessment and Plan documented above with any addition or exceptions noted below.
[2020-03-25] MEDS ORDERED: Furosemide 80 MG TAB PO SCH (07:30)
[2020-03-25] MEDS: Amiodarone 450 MG in Dextrose 5% in Water 250 ML IVPB SCH (07:44)
[2020-03-25] MEDS: Levothyroxine Sodium 125 MCG TAB PO SCH (07:44)
[2020-03-25] MEDS ORDERED: Potassium Chloride 20 MEQ TAB PO SCH (08:00)
[2020-03-25] MEDS ORDERED: Furosemide 100 MG/10 ML VIAL SLOW IVP SCH (09:00)
--- NOTE | 2020-03-25 09:30 | PRG ---
DATE OF SERVICE: 03/25/2020 SUBJECTIVE: Ms. Loya is resting comfortably now. She converted back to sinus rhythm and atrial paced rhythm early this morning at 5:00 in the morning. She has no complaints currently. OBJECTIVE: VITAL SIGNS: Blood pressure 96/52, pulse 62. LUNGS: Clear. CARDIAC: Normal S1, normal S2. ABDOMEN: Soft, nontender. EXTREMITIES: No edema. ASSESSMENT: 1. Paroxysmal atrial fibrillation, now in sinus rhythm. 2. Congestive heart failure, diastolic. 3. Renal failure. Creatinine is up to 1.64. PLAN: 1. Reduce beta-dean. 2. Transition to oral amiodarone. 3. Withhold furosemide. 4. Recheck basement tomorrow hopefully go home tomorrow. Hopefully, her cardiac output will improve in sinus rhythm. Job ID: [id number]
[2020-03-25] MEDS: Amiodarone 200 MG TAB PO SCH ×2 (09:52→21:28)
[2020-03-25] MEDS: Fluticasone Propionate Nasal Spray 16 gm Bottle NASAL SCH (09:53)
[2020-03-25] MEDS: Apixaban 2.5 MG TAB PO SCH ×2 (09:53→21:28)
[2020-03-25] MEDS: Mirtazapine 15 MG Soltab PO SCH (09:55)
[2020-03-25] MEDS ORDERED: traZODone HCl 50 MG TAB PO SCH (21:00)
[2020-03-25] MEDS: rOPINIRole HCl 1 MG TAB PO SCH (21:29)
[2020-03-25] MEDS ORDERED: Melatonin 3 MG TAB PO PRN (23:31)
[2020-03-26 04:42] LABS: Anion Gap 12 mmol/L (10-20); BUN (Urea Nitrogen) 28 mg/dL (9.8-20.1); Calc. Creatinine Clearance 19 mL/min (70-130); Calcium 8.6 mg/dL (7.8-10.44); Carbon Dioxide 30 mmol/L (23-31); Chloride 99 mmol/L (98-107); Estimated GFR-MDRD 37; Glucose 99 mg/dL (83-110); Potassium 4.1 mmol/L (3.5-5.1); Sodium 137 mmol/L (136-145)
--- NOTE | 2020-03-26 05:43 | PDOC.FM ---
- Subjective Subjective: Mrs. Loya was awake this morning although she looked sleepy. She did not have her hearing aids in, per her daughter, so she could not hear me to answer my questions. Per her daughter, she has not been complaining of any palpitations/edema/SOB/CP. Tele shows she has been in paced NSR with HR in the 60s-70s since yesterday at 0500. Haldol was held last night d/t severe interactions with K supplementation and Amiodarone but she was able to sleep well without it. Her daughter is concerned because without the Haldol the pt starts to hear voices which the daughter thinks may have triggered this episode of AFib since the pt got worked up while arguing with the voices. - Objective Vital Signs & Weight: Vital Signs (12 hours) Temp Pulse Resp BP Pulse Ox 03/26/20 04:00 98.8 F 64 18 116/58 L 93 L 03/25/20 18:47 98.3 F 69 18 118/56 L 95 Weight Weight 40.324 kg I&O: 03/24/20 03/25/20 03/26/20 06:59 06:59 06:59 Intake Total 1315 867 610 Output Total 3825 1125 300 Balance -2510 -258 310 Result Diagrams: 03/25/20 03:45 03/26/20 04:00 Phys Exam - Physical Examination Constitutional: NAD (alert, awake) Neck: supple, full ROM Respiratory: no rales, clear to auscultation bilateral Cardiovascular: RRR, no significant murmur Gastrointestinal: soft, non-tender, no distention, positive bowel sounds Musculoskeletal: no edema, pulses present Neurological: non-focal, moves all 4 limbs Psychiatric: normal affect Skin: no rash Dx/Plan - Plan Plan: Afib with RVR - Hx of paroxsmal afib - Possible cause for new-onset CHF - Cardiology consulted, appreciate recs - Taken off Amio gtt yest, converted to oral DARRYL on CKD3 - Likely 2/2 diuresis - Hold Lasix today. Consider restarting tomorrow - Mg 1.9 - Cr improved today but not back to baseline 1.11 Hypokalemia - Due to diuresis, resolved - 40mg PO qam starting tomorrow - Will continue to monitor with am BMPs Concern for new onset CHF - Possible cause for AFib exacerbation - Strict I&Os - Monitor for fluid overload Not clinically fluid overloaded currently - Hold Lasix, as above - Echo showed EF 50-55%, dilated RV, severely dilated b/l atria - Cardiology consulted, appreciate recs Restless leg syndrome - MD aware - Continue home meds Vitamin B12 deficiency - MCV 106 - Is not currently taking supplementation - Monitor Hb with am CBC Hypothyroidism - Continue home meds Dementia - Lives with daughter who is MPOA - Continue home meds - Delirium precautions Sick sinus syndrome with pacemaker placement Osteoarthritis Osteoporosis - Aware PCP: [facility] - Dr. Lenin Paez Code: FULL DVT ppx: Home eliquis, SCDs Diet: HH, low Na Dispo: admit to tele inpatient, expected LOS <48 hours Addendum - Attending - Attending Attestation Date/Time: 03/26/20 1121 I personally evaluated the patient and discussed the management with Dr. Jah Muller. I agree with the History, Examination, Assessment and Plan documented above with any addition or exceptions noted below.
[2020-03-26] MEDS: Levothyroxine Sodium 125 MCG TAB PO SCH (05:47)
[2020-03-26 08:16] VITALS: TEMP 97.7
[2020-03-26] MEDS: Fluticasone Propionate Nasal Spray 16 gm Bottle NASAL SCH (09:11)
[2020-03-26] MEDS: Apixaban 2.5 MG TAB PO SCH (09:14)
--- NOTE | 2020-03-26 09:20 | PRG ---
DATE OF SERVICE: 03/26/2020 SUBJECTIVE: Ms. Loya is resting comfortably. Feels well. No chest pain or pressure. OBJECTIVE: VITAL SIGNS: Her blood pressure is 129/62, pulse 60. LUNGS: Clear. CARDIAC: Normal S1, normal S2. ABDOMEN: Soft and nontender. EXTREMITIES: No edema. ASSESSMENT: 1. Status post episode of atrial fibrillation with a rapid rate. 2. Now in sinus rhythm. 3. Renal failure, improved, creatinine went from 1.64 to 1.35. 4. Diastolic heart failure. BNP was 1014 on the . She is totally comfortable now. She has received some Lasix. PLAN: 1. She is going to go home on Eliquis 2.5 mg twice a day. 2. Reduce amiodarone to 200 mg twice a day for a month, then 200 mg once a day. 3. Metoprolol succinate 50 mg a day. 4. Furosemide 20 mg a day. 5. Potassium 10 mEq a day. 6. She will follow up with Dr. Montes De Oca or his nurse practitioner within two weeks. Job ID: [id number]
[2020-03-26] MEDS: Amiodarone 200 MG TAB PO SCH (09:54)
[2020-03-26] MEDS ORDERED: Amiodarone 200 MG TAB PO SCH ×2 (10:00→21:00)
[2020-03-26] MEDS: Mirtazapine 15 MG Soltab PO SCH (10:21)
[2020-03-26 11:50] VITALS: BP 133/66
[2020-03-27] MEDS ORDERED: Furosemide 20 MG TAB PO SCH (09:00)
--- NOTE | 2020-03-27 14:10 | DIS ---
DATE OF ADMISSION: 03/22/2020 DATE OF DISCHARGE: 03/26/2020 RESIDENT: Kati Isaacs MD. ADMITTING ATTENDING: Dr. Sy Hunter. DISCHARGE ATTENDING: Dr. Kennedy Power. CONSULTS: Cardiology (Viviane Cosby) 03/23. PROCEDURES: None. PRIMARY DIAGNOSES: 1. Atrial fibrillation with rapid ventricular response. 2. Likely new-onset congestive heart failure. 3. Acute kidney injury. SECONDARY DIAGNOSES: 1. Paroxysmal atrial fibrillation with pacemaker. 2. Sick sinus syndrome. 3. Chronic kidney disease, 3. 4. Hypertension. 5. Hypothyroidism. 6. Osteoarthritis. 7. Osteoporosis. 8. Dementia. 9. Macrocytic anemia secondary to vitamin B12 deficiency. DISCHARGE MEDICATIONS: 1. Eliquis 2.5 mg p.o. b.i.d. 2. Amiodarone 200 mg p.o. b.i.d. 3. Metoprolol succinate 50 mg p.o. daily. 4. Furosemide 20 mg p.o. daily. 5. Potassium chloride 10 mEq p.o. daily. 6. Memantine 5 mg p.o. b.i.d. (decreased dose from before). 7. Synthroid 125 mcg p.o. a.m. (increased dose from previous). 8. Trazodone 50 mg p.o. at bedtime. 9. Ropinirole 1 mg p.o. b.i.d. 10. Remeron 45 mg p.o. daily. 11. Flonase. 12. Quetiapine 50 mg p.o. daily. Discontinued medications: 1. Metoprolol tartrate 50 mg p.o. daily. 2. Memantine 10 mg p.o. b.i.d. 3. Levothyroxine 100 mcg p.o. daily. 4. Eliquis 2.5 mg p.o. daily. 5. Haldol 2 mg p.o. at bedtime. HISTORY OF PRESENT ILLNESS/HOSPITAL COURSE: The patient is an 84-year-old female with a history of paroxysmal atrial fibrillation, sick sinus syndrome with pacemaker, dementia, and CKD 3, who presented to the ED with her daughter with complaints of shortness of breath and lower extremity edema. The lower extremity edema began 1 week ago and was initially attributed to a side effect of Seroquel, so the patient was changed to Haldol. The edema did not improve, and the morning before arrival, she started to experience some shortness of breath at rest and exacerbated by movement, as well as cough and palpitations. Pulse oximetry at home was 84%, so she was urged to come to the ED. On arrival, EKG showed atrial fibrillation with RVR at 145 beats per minute. BNP was 1016. Troponins were indeterminate at 0.026, but repeat went down to 0.018. Lipid panel was normal, A1c was 5.5, TSH 8.5, despite being on levothyroxine, so her dose was increased. She received 2 doses of diltiazem in the ED and was admitted to [facility] on a diltiazem drip. Chest x-ray showed cardiomegaly, mild vascular engorgement, left pleural effusion, and small right effusion, also concerning for CHF. She was started on Lasix since her creatinine was at baseline at 1.11. It is unclear whether new-onset CHF caused the AFib exacerbation or whether the AFib exacerbation caused this new-onset CHF, echo was obtained, and Cardiology was consulted. Echo report showed an EF of 50%-55% with markedly enlarged atria bilaterally. Her right ventricle was dilated with normal function and diastolic function was difficult to determine due to being in AFib. Dr. Cosby saw her initially and increased her diuresis, changed her from a diltiazem drip to amiodarone drip, and changed her from her home metoprolol tartrate daily to metoprolol succinate b.i.d. At this point, she converted to normal sinus rhythm. Greater than 4 L of fluid were diuresed, at which point, her creatinine bumped, and we held all Lasix. The diuretics also caused hypokalemia, so she was started on potassium chloride supplementation. Severe interactions with flagged by pharmacy for the combination of her home Haldol with both amiodarone and potassium chloride. The risk of combining Haldol with amiodarone is QT prolongation. The risk of combining Haldol with potassium chloride is decreased gastric emptying and increased risk of ulcers. The patient could not be taken off the amiodarone or the potassium chloride and needed the Haldol to help control nighttime hallucinations. The decision was made to switch her back to Seroquel, which was the medication she had been on prior to this week. In doing so, the risk of QT prolongation remained, but the interaction with potassium chloride did not. Given the fact she had already been on Haldol and an amiodarone drip and did not have any increase in her QTc, it was deemed safe to continue an antipsychotic with the oral amiodarone since the dose was going to be significantly lower. Ultimately, the patient was able to maintain normal sinus rhythm, and Dr. Pan felt comfortable sending her home with the medications as described above. Her home Memantine dose was decreased due to the bump in her creatinine as recommended by the pharmaceutical company. DISPOSITION: Stable. DISCHARGE INSTRUCTIONS: 1. Location: Home. 2. Diet: Heart healthy. 3. Activity: As tolerated. 4. Followup: The patient is recommended to follow up with her PCP, Dr. Jania Paez, in 7 to 10 days. The patient is also recommended to follow up with Dr. Montes De Oca in his office in 14 days. Job ID: [id number]
== END 2020-03-26 13:35 | disposition home or self-care (01) | DRG 291 ==
LOC: ERS 20:49 → 2NO 23:00
PROVIDERS: ADMIT Family Medicine; ATTEND Family Medicine
DX: I13.0 Hypertensive heart and chronic kidney disease with heart failure and stage 1 through stage 4 chronic kidney disease, or unspecified chronic kidney disease (principal); I50.33 Acute on chronic diastolic (congestive) heart failure; N17.9 Acute kidney failure, unspecified; Z20.828 Contact with and (suspected) exposure to other viral communicable diseases; G51.0 Bell's palsy; E78.5 Hyperlipidemia, unspecified; F03.90 Unspecified dementia, unspecified severity, without behavioral disturbance, psychotic disturbance, mood disturbance, and anxiety; I48.0 Paroxysmal atrial fibrillation; I49.5 Sick sinus syndrome; N18.30 Chronic kidney disease, stage 3 unspecified; G25.81 Restless legs syndrome; E53.8 Deficiency of other specified B group vitamins; E03.9 Hypothyroidism, unspecified; M19.90 Unspecified osteoarthritis, unspecified site; M81.0 Age-related osteoporosis without current pathological fracture; D75.89 Other specified diseases of blood and blood-forming organs; E87.6 Hypokalemia; T50.2X5A Adverse effect of carbonic-anhydrase inhibitors, benzothiadiazides and other diuretics, initial encounter; Z90.710 Acquired absence of both cervix and uterus; Z95.0 Presence of cardiac pacemaker; Z79.899 Other long term (current) drug therapy; Z79.01 Long term (current) use of anticoagulants
CPT/HCPCS: 36415; 71045; 80048; 80053; 80061; 82550; 83036; 83735; 83880; 84100; 84443; 84484; 85025; 87635; 93005; 93306; 96374; 96375; 96376; J0282; J1940; J3480; J3490; J7050; J7070; U0003

== ENCOUNTER 2020-03-30 19:38 | Observation (INO) | payer MEDICARE ==
[2020-03-30 20:19] LABS: #Eosinphils 0.1 thou/uL (0.0-0.7); #Lymphocytes 1.1 thou/uL (1.20-3.40); #Monocytes 0.9 thou/uL (0.11-0.59); #Neutrophils 7.6 thou/uL (1.40-6.50); %Basophils 0.3 % (0.0-1.0); %Eosinophils 0.7 % (0.0-10.0); %Monocytes 9.5 % (0.0-10.0); %Neutrophils 78.5 % (42.0-75.0); Hemoglobin 14.3 g/dL (12.0-16.0); Mean Corpuscular HGB CONC 32.9 g/dL (32.0-36.0); Mean Corpuscular Hemoglobin 33.9 pg (27.0-31.0); Mean Platelet Volume 8.2 fL (7.4-10.4); Platelet Count 214 thou/uL (130-400); RBC Distribution Width 14.8 % (11.5-14.5); Red Blood Cell (RBC) Count 4.23 mill/uL (4.20-5.40); White Blood Cell (WBC) Count 9.7 thou/uL (4.8-10.8)
--- NOTE | 2020-03-30 20:36 | RAD ---
PORTABLE CHEST: 03/30/20 PROVIDED CLINICAL HISTORY: Chest pain. FINDINGS: Comparison 03/22/20. The cardiac silhouette is enlarged. Right subclavian cardiac pacing device is redemonstrated in simil ar position. No focal consolidation, pleural fluid, or pneumothorax apparent. IMPRESSION: No evidence for an acute cardiopulmonary process. POS: [facility]
[2020-03-30 20:39] LABS: ALT (SGPT) 23 U/L (8-55); AST (SGOT) 29 U/L (5-34); Albumin 4.4 g/dL (3.4-4.8); Alkaline Phosphatase 110 U/L (40-110); Anion Gap 16 mmol/L (10-20); BUN (Urea Nitrogen) 28 mg/dL (9.8-20.1); Bilirubin, Total 0.9 mg/dL (0.2-1.2); CK (CPK) 38 U/L (29-168); Calc. Creatinine Clearance 0 mL/min (70-130); Calcium 9.8 mg/dL (7.8-10.44); Carbon Dioxide 30 mmol/L (23-31); Chloride 98 mmol/L (98-107); Estimated GFR-MDRD 32; Globulin 3.5 g/dL (2.4-3.5); Glucose 124 mg/dL (83-110); Lipase 51 U/L (8-78); Potassium 4.3 mmol/L (3.5-5.1); Protein, Total 7.9 g/dL (6.0-8.3); Sodium 140 mmol/L (136-145)
[2020-03-30 21:00] LABS: CKMB 0.8 ng/mL (0-6.6)
--- NOTE | 2020-03-30 21:10 | CT ---
CT Brain WO Con: 03/30/2020 8:55 PM CLINICAL HISTORY: Altered mental status with history of dementia. IMAGING TECHNIQUE: Multiple CT images were obtained of the brain without IV contrast. COMPARISON: Prior CT the brain dated March 12, 2020 FINDINGS: BRAIN: Evidence of acute infarct: None. Evidence of chronic ischemic change:Nivr-ro-wqeuoebs chronic small vessel white matter ischemic méndez es similar. Calcifications within the deep zarco nuclei are stable. Generalized cerebral atrophy is similar. Evidence of intracranial hemorrhage: None. Evidence of midline shift: Third ventricle and septum pellucidum are midline. Ventricles: Normal. No hydrocephalus. SKULL: Intact. VISUALIZED PARANASAL SINUSES: Clear. MASTOID AIR CELLS: Clear. EXTRACRANIAL SOFT TISSUES: Normal. IMPRESSION: No acute intracranial abnormality.
[2020-03-30 21:45] LABS: Bilirubin Negative (Negative); Blood, Urine Negative (Negative); Clarity Clear (Clear); Glucose, Urine (Dipstick) Normal (Negative); Ketone, Urine Negative (Negative); Leukocyte Negative Leu/uL (Negative); Nitrite Negative (Negative); Protein, Urine (Dipstick) 20 mg/dL (Neg-Trace); Specific Gravity, Urine 1.024 (1.002-1.036); Urobilinogen 3 mg/dL (Less than 2); pH, Urine 7.5 (5.0-9.0)
--- NOTE | 2020-03-30 22:01 | PDOC.FPRHP ---
- History of Present Illness Chief Complaint: chest pain History of Present Illness: This is an 84yo F presenting with CC of chest pain. Reports pain started around 6pm tonight. Does report hx of GERD. Daughter brought her in. Pain was in the middle of her chest. No radiation. Patient has been more sleepy today. Daughter reports patient was "moaning and groaning" at home which made her worried and that is why she brought her in. Denies hx of all or weakness. She has been eating well at home. Per daughter, she seems a little more confused today than usual. Daughter states she is now back at her baseline and she is no longer complaining of food. History difficult to obtain. Patient axO x 1, oriented to person. Daughter present at the bedside who was able to provide the above history. Of note: She was recently admitted to the hospital for A fib with RVR and discharged on 03/26. She was diagnosed with CHF during that hospitalization and started on lasix. It was presumed new CHF was the reason for her afib with RVR. ED Course: ASA - Allergies/Adverse Reactions Allergies Allergy/AdvReac Type Severity Reaction Status Date / Time No Known Allergies Allergy Verified 03/23/20 01:30 - Home Medications Medication Instructions Recorded Confirmed Type Fluticasone Propionate [Flonase 1 spray EA NARE DAILY PRN 05/01/19 03/23/20 History Allergy Relief] Mirtazapine [Remeron Soltab] 45 mg PO DAILY 05/01/19 03/23/20 History rOPINIRole HCl [Requip] 1 mg PO BID 05/01/19 03/23/20 History traZODone HCl [Trazodone HCl] 50 mg PO HS 05/01/19 03/23/20 History Amiodarone [Cordarone] 200 mg PO BID #90 tab 03/26/20 Rx Apixaban [Eliquis] 2.5 mg PO BID #60 tab 03/26/20 Rx Furosemide [Lasix] 20 mg PO DAILY #30 tab 03/26/20 Rx Levothyroxine Sodium [Synthroid] 125 mcg PO 0600 #30 tab 03/26/20 Rx Memantine HCl [Namenda] 5 mg PO BID #60 tab 03/26/20 Rx Metoprolol Succinate [Toprol XL] 50 mg PO DAILY #30 tab 03/26/20 Rx Potassium Chloride [Klor-Con 10] 10 meq PO DAILY #30 tab 03/26/20 Rx - History PMHx: A fib s/p pacemaker, hypothyroidism, bells palsy (1999), anemia, TANANA, HTN, dementia, HF PSHx: c section x 4, hysterectomy, pacemaker 2018 FHx: non contributory Social: denies tobacco, drug and alcohol use - Review of Systems General: denies: fever/chills, weight/appetite/sleep changes, night sweats, fatigue Eyes: denies: vision changes ENT: denies: nasal congestion, rhinorrhea Respiratory: denies: cough, congestion, shortness of breath, exercise intolerance Cardiovascular: reports: chest pain. denies: palpitation, edema, paroxysmal nocturnal dyspnea, orthopnea Gastrointestinal: denies: nausea, vomiting, diarrhea, constipation, abdominal pain Genitourinary: denies: dysuria Skin: denies: rashes, lesions Musculoskeletal: denies: pain, tenderness, stiffness, swelling Neurological: denies: weakness - Vital signs BP: 128/62, Pulse: 83, Resp: 20, Temp: 98.4 (Oral), Pain: 0, O2 sat: 96 on (Room Air), Time: 03/30/2020 22:43. Weight 42kg BP: 114/79, Pulse: 90, Resp: 18, Temp: 98.6 (Oral), Pain: 3, O2 sat: 100 on (Room Air), Time: 03/30/2020 19:45 - Physical Exam Constitutional: NAD, awake, alert and oriented, well developed HEENT: normocephalic and atraumatic, PERRLA, EOMI, grossly normal vision, grossly normal hearing, MMM Neck: supple, FROM, trachea midline Chest: no-tender to palpation Heart: RRR, normal S1/S2, no murmurs/rubs/gallops, pulses present Lungs: CTAB, no respiratory distress, good air movement, no rales/rhonchi, no wheezing, no retractions Abdomen: soft, non-tender, bowel sounds present, no masses/distention, no hernias Musculoskeletal: normal structure Neurological: no focal deficit, other (R-sided facial droop, reported from daughter chronic x 20 years 2/2 bells palsy) Skin: no rash/lesions, good turgor, capillary refill <2 seconds Heme/Lymphatic: no unusual bruising or bleeding, no purpura, no petechia Psychiatric: other (AxO x1 (person)) FMR H&P: Results - Labs Result Diagrams: 03/30/20 20:08 03/30/20 20:08 Lab results: WBC 9.7 thou/uL (4.8-10.8) 03/30/20 20:08 Hgb 14.3 g/dL (12.0-16.0) 03/30/20 20:08 Hct 43.6 % (36.0-47.0) 03/30/20 20:08 MCV 103.0 fL (78.0-98.0) H 03/30/20 20:08 Plt Count 214 thou/uL (130-400) 03/30/20 20:08 Neutrophils % 78.5 % (42.0-75.0) H 03/30/20 20:08 Sodium 140 mmol/L (136-145) 03/30/20 20:08 Potassium 4.3 mmol/L (3.5-5.1) 03/30/20 20:08 Chloride 98 mmol/L (98-107) 03/30/20 20:08 Carbon Dioxide 30 mmol/L (23-31) 03/30/20 20:08 BUN 28 mg/dL (9.8-20.1) H 03/30/20 20:08 Creatinine 1.55 mg/dL (0.6-1.1) H 03/30/20 20:08 Glucose 124 mg/dL (83-110) H 03/30/20 20:08 Calcium 9.8 mg/dL (7.8-10.44) 03/30/20 20:08 Total Bilirubin 0.9 mg/dL (0.2-1.2) 03/30/20 20:08 AST 29 U/L (5-34) 03/30/20 20:08 ALT 23 U/L (8-55) 03/30/20 20:08 Alkaline Phosphatase 110 U/L (40-110) 03/30/20 20:08 Creatine Kinase 38 U/L (29-168) 03/30/20 20:08 CK-MB (CK-2) 0.8 ng/mL (0-6.6) 03/30/20 20:08 Serum Total Protein 7.9 g/dL (6.0-8.3) 03/30/20 20:08 Albumin 4.4 g/dL (3.4-4.8) 03/30/20 20:08 Lipase 51 U/L (8-78) 03/30/20 20:08 Urine Ketones Negative mg/dL (Negative) 03/30/20 21:31 Urine Blood Negative (Negative) 03/30/20 21:31 Urine Nitrite Negative (Negative) 03/30/20 21:31 Ur Leukocyte Esterase Negative Aminta/uL (Negative) 03/30/20 21:31 - EKG Interpretation EKG: Afib with no RVR - Radiology Interpretation CT scan - head Status: report reviewed by me (No acute intracranial abnormality) Chest x-ray Additional comment: CXR: no cardiopulmonary process FMR H&P: A/P - Plan Atypical Chest Pain, likely 2/2 GERD, r/o ACS Hx of Afib s/p pacemaker EKG: Afib with no RVR Troponin neg x 1 - will continue to trend troponins x3 total - starting famotidine - mIVFs @ 75 - GI cocktail if pain returns - continue tele monitoring - continue monitoring vitals - palliative care consult - advanced directives Hx Afib s/p pacemaker - continue home medications - Eliquis 2.5mg BID resumed Hypothyroidism - TSH 8 at last admission - continue synthroid at 125mcg Hx Anemia - hemoglobin 14.3 today - stable HTN - resume home meds Dementia - returned to baseline per daughter - continue home meds HFpEF - resume home meds Dispo: admit tele, obs Diet: Heart Healthy PCP: [facility] Code: CPR only, DNI per daughter who is MPOA Case to be discussed with Tono. FMR H&P: Upper Level - Plan Date/Time: 03/30/202200 IShakira MD, have evaluated this patient and agree with findings/plan as outlined by engineering intern resident. Pertinent changes/additions are listed here. This is an 84yo F with PMH of afib s/p pacemaker, hypothyroidism, HTN, CHF presenting to the ER with CC of chest pain. 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 She denies any SOB, NVD, abd pain, cough, congestion, fever, sore throat, chills. She was recently admitted to the hospital for A fib with RVR and discharged on 03/26. She was diagnosed with CHF during that hospitalization and started on lasix. It was presumed new CHF was the reason for her afib with RVR. She has not missed any doses of her medications. Daughter reports hx of dementia but patient has been more altered than normal. In the ER during our exam, daughter stated patient was back to baseline. In the ER the patient was given ASA. PE unremarkable. She does have a facial droop on R, hx of bells palsy. Patient is axox1. Patient to be admitted to tele, obs for atypical chest pain. Patient initial trop indeterminanat and will trend. More likely suspect GERD as etiology of chest pain. Can try GI cocktail if pain occurs again. TSH 8 at last admission. Will continue synthroid at 125mcg (increased dose from previous). Continue home medications for chronic conditions. Will consult palliative care to go over advanced directives with daughter. Dispo: admit tele, obs Code: CPR only, DNI per daughter who is MPOA Case to be discussed with Tono. See engineering intern note for full history. Addendum - Attending - Attending Attestation Date/Time: 03/31/20 3591 I personally evaluated the patient and discussed the management with Dr. Parnell/Vincent. I agree with the History, Examination, Assessment and Plan documented above with any addition or exceptions noted below.
[2020-03-30] MEDS ORDERED: Aspirin Chewable 81 MG TAB ONE (22:36)
[2020-03-30 23:41] LABS: Troponin I 0.016 ng/mL (< 0.028)
[2020-03-31] MEDS ORDERED: Acetaminophen 325 MG TAB PO PRN (00:31)
[2020-03-31] MEDS ORDERED: Acetaminophen 650 MG Suppository PR PRN (01:31)
[2020-03-31] MEDS ORDERED: Ondansetron ODT 4 MG TAB PO PRN (01:31)
[2020-03-31] MEDS ORDERED: Ondansetron PF 4 MG/2 ML Vial IVP PRN (01:31)
[2020-03-31] MEDS ORDERED: Nitroglycerin 0.4 MG TAB (25 Tab Bottle) SL PRN (01:36)
[2020-03-31] MEDS ORDERED: Lactated Ringer's 1,000 ML IV SCH (01:45)
[2020-03-31 03:32] LABS: Troponin I 0.025 ng/mL (< 0.028)
--- NOTE | 2020-03-31 05:36 | PDOC.FM ---
- Subjective Subjective: No acute overnight events. Patient has not had any further episodes of the chest pain that brought her into the ED. She does not really remember having any chest pain. Her daughter is present who confirms she has not complained of any further chest pain overnight. She also denies any SOB, palpitations, edema, abdominal pain, acid reflux this morning. She feels well and would like to go home. - Objective Result Diagrams: 03/30/20 20:08 03/30/20 20:08 Phys Exam - Physical Examination Constitutional: NAD HEENT: moist MMs Neck: supple Respiratory: no wheezing, no rales, no rhonchi, clear to auscultation bilateral Cardiovascular: no significant murmur irregular rhythm, regular rate Gastrointestinal: soft, non-tender, no distention, positive bowel sounds Musculoskeletal: no edema, pulses present Neurological: non-focal, moves all 4 limbs ambulating with assistance around room Psychiatric: A&O x 3 Skin: no rash Dx/Plan - Plan Plan: Atypical Chest Pain, likely 2/2 GERD, r/o ACS Hx of Afib s/p pacemaker EKG: Afib with no RVR Troponin neg x 3 Recent extensive w/u with cardiology due to new onset HF presumed 2/2 afib - will interrogate pacemaker, likely DC to home if no concerns on report Hx Afib s/p pacemaker - continue home medications - Eliquis 2.5mg BID resumed Hypothyroidism - TSH 8 at last admission - continue synthroid at 125mcg Hx Anemia - hemoglobin 14.3 today - stable HTN - resume home meds Dementia - returned to baseline per daughter - continue home meds HFpEF - resume home meds Dispo: likely DC to home pending PM evaluation Diet: Heart Healthy PCP: [facility] Code: CPR only, DNI per daughter who is MPOA Addendum - Attending - Attending Attestation Date/Time: 03/31/20 3853 I personally evaluated the patient and discussed the management with Dr. Prakash. I agree with the History, Examination, Assessment and Plan documented above with any addition or exceptions noted below.
[2020-03-31] MEDS ORDERED: Levothyroxine Sodium 125 MCG TAB PO SCH (06:00)
[2020-03-31] MEDS ORDERED: Potassium Chloride 10 MEQ TAB PO SCH (09:00)
[2020-03-31] MEDS ORDERED: Furosemide 20 MG TAB PO SCH (09:00)
[2020-03-31] MEDS ORDERED: Amiodarone 200 MG TAB PO SCH (09:00)
[2020-03-31] MEDS ORDERED: Famotidine 20 MG TAB PO SCH (09:00)
[2020-03-31] MEDS ORDERED: Apixaban 2.5 MG TAB PO SCH (09:00)
[2020-03-31] MEDS ORDERED: Mirtazapine 15 MG Soltab PO SCH (09:00)
[2020-03-31] MEDS ORDERED: rOPINIRole HCl 1 MG TAB PO SCH (09:00)
[2020-03-31] MEDS ORDERED: Potassium Chloride 20 MEQ TAB ONE (09:36)
[2020-03-31] MEDS ORDERED: Furosemide 40 MG TAB ONE (09:36)
[2020-03-31] MEDS ORDERED: Metoprolol Tartrate 50 MG TAB ONE (09:36)
[2020-03-31] MEDS ORDERED: Famotidine 20 MG TAB ONE (09:36)
[2020-03-31] MEDS ORDERED: traZODone HCl 50 MG TAB PO SCH (21:00)
--- NOTE | 2020-04-02 00:32 | DIS ---
DATE OF ADMISSION: 03/30/2020 DATE OF DISCHARGE: 03/31/2020 METAL OR WOOD BLOCKER: None. PROCEDURES: CT brain, which showed no acute findings. Pacemaker interrogation, which showed atrial fibrillation with rates in the 80s. No episodes of RVR and ventricular pacing. PRIMARY DIAGNOSIS: Atypical chest pain, most likely due to gastroesophageal reflux disease. SECONDARY DIAGNOSES: 1. Atrial fibrillation, status post pacemaker. 2. Hypothyroidism. 3. History of anemia. 4. Hypertension. 5. Dementia. 6. Heart failure with preserved ejection fraction. DISCHARGE MEDICATIONS: 1. Levothyroxine 125 mcg p.o. daily. 2. Amiodarone 200 mg p.o. daily. 3. Eliquis 2.5 mg p.o. daily. 4. Lasix 20 mg p.o. daily. 5. Namenda 5 mg p.o. b.i.d. 6. Metoprolol 50 mg p.o. daily. 7. Mirtazapine 45 mg p.o. daily. 8. Potassium 10 mEq p.o. daily. 9. Requip 1 mg p.o. b.i.d. 10. Trazodone 50 mg p.o. h.s. Discontinued medications: None. HOSPITAL COURSE: This is an 84-year-old female who was brought to the emergency department by her daughter for reported chest pain. This chest pain was atypical and described as central, sharp pain in the chest. She was evaluated with EKG, which revealed atrial fibrillation without RVR. Troponins were negative x3. Her pacemaker was interrogated, which revealed atrial fibrillation without RVR, and ventricular pacing. Of note, she recently was discharged from the hospital after an extensive workup with Cardiology due to new onset heart failure presumed secondary to her atrial fibrillation. Her chest pain during this admission was felt to be more likely to be GERD rather than acute coronary artery syndrome or other cardiac source. The pain was improved without any intervention and her vitals were stable. She already has scheduled followup with Cardiology after her recent admission. DISPOSITION: Stable. DISCHARGE INSTRUCTIONS: 1. Location: Home. 2. Diet: Heart healthy. 3. Activity: As tolerated. 4. Followup: With your primary care physician and with your twill cutter as previously scheduled within the next 1 week. Job ID: [id number]
--- NOTE | 2020-04-06 16:04 | EKG ---
Test Reason : Blood Pressure : / mmHG Vent. Rate : 087 BPM Atrial Rate : 088 BPM P-R Int : 000 ms QRS Dur : 074 ms QT Int : 384 ms P-R-T Axes : 000 097 065 degrees QTc Int : 462 ms Demand pacemaker; interpretation is based on intrinsic rhythm Atrial fibrillation with premature ventricular or aberrantly conducted complexes Rightward axis Nonspecific ST and T wave abnormality , probably digitalis effect Abnormal ECG Confirmed by CEDRIC RAE, CARTER ([id number]), editor producer AVERY SANDS ([id number]) on 04/06/2020 4:04:02 PM Referred By: Confirmed By:CARTER STEELE MD
== END 2020-03-31 12:32 | disposition admitted as inpatient to this hospital (09) ==
LOC: ERS 19:38 → ERHOLD 22:03
PROVIDERS: ADMIT Student in an Organized Health Care Education/Training Program; ATTEND Student in an Organized Health Care Education/Training Program
DX: R07.89 Other chest pain (principal); I48.91 Unspecified atrial fibrillation; E03.9 Hypothyroidism, unspecified; I11.0 Hypertensive heart disease with heart failure; I50.30 Unspecified diastolic (congestive) heart failure; F03.90 Unspecified dementia, unspecified severity, without behavioral disturbance, psychotic disturbance, mood disturbance, and anxiety; K21.9 Gastro-esophageal reflux disease without esophagitis; G51.0 Bell's palsy; Z79.01 Long term (current) use of anticoagulants; Z79.899 Other long term (current) drug therapy; Z95.0 Presence of cardiac pacemaker
CPT/HCPCS: 36415; 70450; 71045; 80053; 81003; 82550; 82553; 83690; 84484; 85025; 93005

== ENCOUNTER 2020-06-07 07:32 | Outpatient (CLI) | payer MEDICARE ==
[2020-06-07 16:32] LABS: #Eosinphils 0.4 10x3/uL (0.0-0.5); #Monocytes 0.5 10x3/uL (0.0-1.1); #Neutrophils 3.2 10x3/uL (1.5-8.4); %Basophils 0.6 % (0.0-2.0); %Eosinophils 7.3 % (0.0-6.0); %Lymphocytes 17.3 % (18.0-47.0); %Monocytes 10.5 % (0.0-10.0); %Neutrophils 64.1 % (40.0-75.0); Hemoglobin 9.7 g/dL (12.0-16.0); Mean Corpuscular HGB CONC 31.4 G/DL (32.0-36.0); Mean Corpuscular Hemoglobin 33.6 PG (27.0-33.0); Mean Corpuscular Volume 106.9 fl (80.0-100.0); Mean Platelet Volume 10.8 fl (7.4-10.4); Platelet Count 186 10x3/uL (130-400); Red Blood Cell (RBC) Count 2.89 10x6/uL (3.90-5.20)
[2020-06-07 18:04] LABS: Macrocytosis SLIGHT = 6-15 cells (100X) (0-5/hpf); Platelet Morphology Comment Appears Adequate
[2020-06-07 18:07] LABS: Anisocytosis SLIGHT = 6-15 cells (100X) (0-5/hpf)
[2020-06-08 02:28] LABS: SARS-CoV-2 MS2 Positive; SARS-CoV-2 N Gene Negative; SARS-CoV-2 S Gene Negative; SARS-CoV-2 by NAA Not Detected (NotDetected); SARS-CoV-2 orf1ab Negative
== END 2020-06-07 07:33 | disposition home or self-care (01) ==
LOC: LABBT 07:32
PROVIDERS: ATTEND Internal Medicine Cardiovascular Disease
DX: Z01.812 Encounter for preprocedural laboratory examination (principal); Z20.822 Contact with and (suspected) exposure to COVID-19
CPT/HCPCS: 85025; U0003; 87635

== ENCOUNTER 2020-06-12 06:41 | Day surgery (SDC) | payer MEDICARE ==
[2020-06-10 14:01] VITALS: BMI 16.7
[2020-06-12 07:59] LABS: Anion Gap 12 mmol/L (10-20); BUN (Urea Nitrogen) 23 mg/dL (9.8-20.1); Calc. Creatinine Clearance 20 mL/min (70-130); Calcium 8.6 mg/dL (7.8-10.44); Carbon Dioxide 28 mmol/L (23-31); Chloride 103 mmol/L (98-107); Glucose 88 mg/dL (83-110); Potassium 4.4 mmol/L (3.5-5.1); Sodium 139 mmol/L (136-145)
[2020-06-12] MEDS ORDERED: PROPOFOL 200 MG/20 ML VIAL ONE (11:41)
--- NOTE | 2020-06-18 14:49 | CCLSPC ---
PROCEDURE: Electrocardioversion. INDICATION: Atrial fibrillation. The patient was sedated by Anesthesia and using 200 joules of synchronized energy, she returned to sinus rhythm. Amiodarone will be reduced to 200 mg every day and she will be seen again in 3 to 4 weeks for followup. Job ID: [id number]
--- NOTE | 2020-06-23 19:29 | EKG ---
Test Reason : PREOP CARDIOVERSION Blood Pressure : / mmHG Vent. Rate : 082 BPM Atrial Rate : 105 BPM P-R Int : 000 ms QRS Dur : 158 ms QT Int : 464 ms P-R-T Axes : 000 115 -15 degrees QTc Int : 542 ms Electronic ventricular pacemaker When compared with ECG of 30-MAR-2020 19:56, Electronic ventricular pacemaker has replaced Atrial fibrillation Confirmed by RAJNI CHANEL MD ([id number]) on 06/23/2020 7:29:48 PM Referred By: ITALO Confirmed By:RAJNI CHANEL MD
--- NOTE | 2020-06-23 19:30 | EKG ---
Test Reason : POST CARDIOVERSION Blood Pressure : / mmHG Vent. Rate : 060 BPM Atrial Rate : 060 BPM P-R Int : 198 ms QRS Dur : 086 ms QT Int : 462 ms P-R-T Axes : 097 091 080 degrees QTc Int : 462 ms Electronic atrial pacemaker Rightward axis Borderline ECG When compared with ECG of 12-JUN-2020 07:53, (Unconfirmed) Electronic atrial pacemaker has replaced Electronic ventricular pacemaker Confirmed by RAJNI CHANEL MD ([id number]) on 06/23/2020 7:30:10 PM Referred By: ITALO Confirmed By:RAJNI CHANEL MD
== END 2020-06-12 11:06 | disposition home or self-care (01) ==
LOC: CCL 06:41
PROVIDERS: ATTEND Internal Medicine Cardiovascular Disease
PROC: 5A2204Z Restoration of Cardiac Rhythm, Single (ICD-10-PCS; principal; 2020-06-12)
DX: I48.0 Paroxysmal atrial fibrillation (principal); I10 Essential (primary) hypertension; E03.9 Hypothyroidism, unspecified; I49.5 Sick sinus syndrome; I87.323 Chronic venous hypertension (idiopathic) with inflammation of bilateral lower extremity; Z79.01 Long term (current) use of anticoagulants; Z79.899 Other long term (current) drug therapy; Z95.0 Presence of cardiac pacemaker
CPT/HCPCS: 36415; 80048; 92960; 93005; 93010; J2704

== ENCOUNTER 2020-08-25 08:47 | Emergency (ER) | payer MEDICARE ==
[2020-08-25] MEDS ORDERED: Ketorolac Tromethamine 30 MG/ML VIAL ONE (09:50)
[2020-08-25] MEDS ORDERED: traMADol HCl 50 MG TAB ONE (11:20)
== END 2020-08-25 11:30 | disposition home or self-care (01) ==
LOC: ERS 08:47
DX: S83.91XA Sprain of unspecified site of right knee, initial encounter (principal); I11.0 Hypertensive heart disease with heart failure; I50.9 Heart failure, unspecified; E03.9 Hypothyroidism, unspecified; D64.9 Anemia, unspecified; I48.91 Unspecified atrial fibrillation; F03.90 Unspecified dementia, unspecified severity, without behavioral disturbance, psychotic disturbance, mood disturbance, and anxiety; Z79.01 Long term (current) use of anticoagulants; Z79.899 Other long term (current) drug therapy; W01.0XXA Fall on same level from slipping, tripping and stumbling without subsequent striking against object, initial encounter; Y92.009 Unspecified place in unspecified non-institutional (private) residence as the place of occurrence of the external cause
CPT/HCPCS: 96372; J1885

== ENCOUNTER 2020-10-23 13:48 | Outpatient (CLI) | payer MEDICARE | END 2020-10-23 13:49 | disposition home or self-care (01) | LOC: BICRAD 13:48 | PROVIDERS: ATTEND Internal Medicine Cardiovascular Disease | DX: I48.0 Paroxysmal atrial fibrillation (principal); I51.7 Cardiomegaly | CPT/HCPCS: 71046 ==

== ENCOUNTER 2020-11-05 08:08 | Emergency (ER) | payer MEDICARE ==
[2020-11-05] MEDS ORDERED: HYDROcodone/Acetaminophen 10/325 mg Tablet ONE (10:44)
== END 2020-11-05 12:00 | disposition home or self-care (01) ==
LOC: ERS 08:08
DX: S52.501A Unspecified fracture of the lower end of right radius, initial encounter for closed fracture (principal); S52.614A Nondisplaced fracture of right ulna styloid process, initial encounter for closed fracture; I48.91 Unspecified atrial fibrillation; E03.9 Hypothyroidism, unspecified; I11.0 Hypertensive heart disease with heart failure; I50.9 Heart failure, unspecified; W19.XXXA Unspecified fall, initial encounter
CPT/HCPCS: 29125

== ENCOUNTER 2020-11-20 16:53 | Outpatient (CLI) | payer MEDICARE ==
[2020-11-20 17:39] LABS: #Eosinphils 0.1 10x3/uL (0.0-0.5); #Monocytes 0.5 10x3/uL (0.0-1.1); #Neutrophils 5.8 10x3/uL (1.5-8.4); %Basophils 0.1 % (0.0-2.0); %Eosinophils 1.8 % (0.0-6.0); %Lymphocytes 9.5 % (18.0-47.0); %Monocytes 7.5 % (0.0-10.0); %Neutrophils 80.4 % (40.0-75.0); Hemoglobin 9.2 g/dL (12.0-15.5); Mean Corpuscular HGB CONC 30.7 g/dL (32.0-36.0); Mean Corpuscular Hemoglobin 32.7 pg (27.0-33.0); Mean Corpuscular Volume 106.8 fl (81.6-98.3); Mean Platelet Volume 10.1 fl (7.4-10.4); Platelet Count 207 10x3/uL (150-450); RBC Distribution Width 16.2 % (11.5-14.5); Red Blood Cell (RBC) Count 2.81 10x6/uL (3.90-5.03); White Blood Cell (WBC) Count 7.2 10x3/uL (3.5-10.5)
[2020-11-20 17:50] LABS: ALT (SGPT) 19 U/L (8-55); AST (SGOT) 23 U/L (5-34); Alkaline Phosphatase 108 U/L (40-110); Anion Gap 13 mmol/L (10-20); BUN (Urea Nitrogen) 21 mg/dL (9.8-20.1); Bilirubin, Total 0.5 mg/dL (0.2-1.2); Calc. Creatinine Clearance 0 mL/min (70-130); Calcium 9.3 mg/dL (7.8-10.44); Carbon Dioxide 24 mmol/L (23-31); Chloride 104 mmol/L (98-107); Globulin 3.1 g/dL (2.4-3.5); Glucose 109 mg/dL (83-110); Protein, Total 7.1 g/dL (5.8-8.1); Sodium 137 mmol/L (136-145)
[2020-11-20 18:00] LABS: Anisocytosis SLIGHT = 6-15 cells (100X) (0-5/hpf); Hypochromia SLIGHT = 6-15 cells (100X) (0-5/hpf); Macrocytosis SLIGHT = 6-15 cells (100X) (0-5/hpf); Platelet Morphology Comment Appears Adequate
[2020-11-21 00:38] LABS: SARS-CoV-2 PCR by NAA Not Detected (NotDetected)
== END 2020-11-20 16:54 | disposition home or self-care (01) ==
LOC: LABBT 16:53
PROVIDERS: ATTEND Internal Medicine Cardiovascular Disease
DX: Z01.812 Encounter for preprocedural laboratory examination (principal); I48.0 Paroxysmal atrial fibrillation; Z20.822 Contact with and (suspected) exposure to COVID-19
CPT/HCPCS: 80053; 85025; U0003; U0005

== ENCOUNTER 2020-11-21 09:00 | Day surgery (SDC) | payer MEDICARE ==
[2020-11-20 16:08] VITALS: BMI 16.4
== END 2020-11-21 11:00 | disposition home or self-care (01) ==
LOC: SDC 09:00
PROVIDERS: ATTEND Internal Medicine Cardiovascular Disease
DX: I48.0 Paroxysmal atrial fibrillation (principal); Z53.8 Procedure and treatment not carried out for other reasons; I10 Essential (primary) hypertension; E03.9 Hypothyroidism, unspecified; I49.5 Sick sinus syndrome; G51.0 Bell's palsy; Z79.01 Long term (current) use of anticoagulants; Z79.899 Other long term (current) drug therapy
CPT/HCPCS: 93005; 93010

== ENCOUNTER 2021-10-28 10:39 | Outpatient (CLI) | payer MEDICARE | END 2021-10-28 10:40 | disposition home or self-care (01) | LOC: BICCT 10:39 | PROVIDERS: ATTEND Urology | DX: R31.29 Other microscopic hematuria (principal); J98.4 Other disorders of lung; I51.7 Cardiomegaly; I31.3 Pericardial effusion (noninflammatory); K82.8 Other specified diseases of gallbladder; N20.0 Calculus of kidney; N28.1 Cyst of kidney, acquired; N26.1 Atrophy of kidney (terminal); K59.00 Constipation, unspecified; S32.592D Other specified fracture of left pubis, subsequent encounter for fracture with routine healing; Z79.01 Long term (current) use of anticoagulants | CPT/HCPCS: 74176 ==

== ENCOUNTER 2022-02-20 11:00 | Inpatient (IN) | payer MEDICARE ==
[2022-02-20 11:50] LABS: Hemoglobin 9.6 g/dL (12.0-15.5); Mean Corpuscular Hemoglobin 33.9 pg (27.0-33.0); Mean Corpuscular Volume 109.5 fl (81.6-98.3); Mean Platelet Volume 10.5 fl (7.4-10.4); Platelet Count 144 10x3/uL (150-450); RBC Distribution Width 15.4 % (11.5-14.5); Red Blood Cell (RBC) Count 2.83 10x6/uL (3.90-5.03); White Blood Cell (WBC) Count 3.6 10x3/uL (3.5-10.5)
[2022-02-20 12:03] LABS: PTT 26.8 sec (22.0-33.0); Prothrombin Time 10.7 sec (9.5-12.1)
[2022-02-20 12:22] LABS: ALT (SGPT) 14 U/L (8-55); AST (SGOT) 21 U/L (5-34); Albumin 4.3 g/dL (3.4-4.8); Alkaline Phosphatase 104 U/L (40-110); Anion Gap 10 mmol/L (10-20); BUN (Urea Nitrogen) 22 mg/dL (9.8-20.1); Bilirubin, Total 0.5 mg/dL (0.2-1.2); Calc. Creatinine Clearance 0 mL/min (70-130); Calcium 8.9 mg/dL (7.8-10.44); Carbon Dioxide 28 mmol/L (23-31); Chloride 108 mmol/L (98-107); Estimated GFR 45; Globulin 2.7 g/dL (2.4-3.5); Glucose 89 mg/dL (83-110); Sodium 142 mmol/L (136-145)
[2022-02-20 12:32] LABS: Bilirubin Neg (Negative); Blood, Urine Negative (Negative); Clarity Clear (Clear); Glucose, Urine (Dipstick) Normal (Negative); Ketone, Urine Negative (Negative); Leukocyte 25 (Negative); Nitrite Negative (Negative); Protein, Urine (Dipstick) 30 mg/dl (Neg-Trace)
[2022-02-24 09:09] VITALS: BMI 16.2
[2022-02-25] MEDS ORDERED: CEFAZOLIN 1 GM VIAL ONE (07:21)
[2022-02-25] MEDS ORDERED: Heparin 10,000 UNITS/ 10 ML VIAL ONE (08:51)
[2022-02-25] MEDS ORDERED: Protamine Sulfate 50 MG/5 ML VIAL ONE (08:51)
[2022-02-25] MEDS ORDERED: Iopamidol 370 76% 100 ML VIAL ONE ×2 (08:54→12:49)
[2022-02-25] MEDS ORDERED: fentaNYL Citrate/PF 100 MCG/2 ML SYRINGE ONE (10:01)
[2022-02-25] MEDS ORDERED: Dexamethasone 20 MG/5 ML VIAL ONE (10:23)
[2022-02-25] MEDS ORDERED: Lidocaine 1% MPF 2 ML VIAL ONE (10:23)
[2022-02-25] MEDS ORDERED: PROPOFOL 200 MG/20 ML VIAL ONE (10:23)
[2022-02-25] MEDS ORDERED: Rocuronium Bromide 10 MG/ML (10ML VIAL) ONE (10:23)
[2022-02-25] MEDS ORDERED: Ondansetron PF 4 MG/2 ML Vial ONE (10:23)
[2022-02-25] MEDS ORDERED: NEOSTIGMINE 3 MG/3 ML SYR 3 MG/3 ML SYRINGE ONE (10:23)
[2022-02-25] MEDS ORDERED: ePHEDrine 50 MG/ML VIAL ONE (10:23)
[2022-02-25] MEDS ORDERED: Glycopyrrolate 0.2 MG/ML 5 ML SYRINGE ONE (10:23)
== END 2022-02-25 16:25 | disposition home or self-care (01) | DRG 274 ==
LOC: EEVIPCON 02-25 07:00 → SURG A 02-25 07:00
PROVIDERS: ADMIT Internal Medicine Cardiovascular Disease; ATTEND Internal Medicine Cardiovascular Disease
PROC: 02L73DK Occlusion of Left Atrial Appendage with Intraluminal Device, Percutaneous Approach (ICD-10-PCS; principal; 2022-02-25)
PROC: B24BZZ4 Ultrasonography of Heart with Aorta, Transesophageal (ICD-10-PCS; 2022-02-25)
DX: I48.0 Paroxysmal atrial fibrillation (principal); I13.0 Hypertensive heart and chronic kidney disease with heart failure and stage 1 through stage 4 chronic kidney disease, or unspecified chronic kidney disease; I50.32 Chronic diastolic (congestive) heart failure; Z00.6 Encounter for examination for normal comparison and control in clinical research program; Z20.822 Contact with and (suspected) exposure to COVID-19; I49.5 Sick sinus syndrome; E03.9 Hypothyroidism, unspecified; G51.0 Bell's palsy; F03.90 Unspecified dementia, unspecified severity, without behavioral disturbance, psychotic disturbance, mood disturbance, and anxiety; E53.8 Deficiency of other specified B group vitamins; M81.0 Age-related osteoporosis without current pathological fracture; G25.81 Restless legs syndrome; N18.30 Chronic kidney disease, stage 3 unspecified; I83.93 Asymptomatic varicose veins of bilateral lower extremities; Z95.0 Presence of cardiac pacemaker; Z90.710 Acquired absence of both cervix and uterus; Z98.890 Other specified postprocedural states; Z79.01 Long term (current) use of anticoagulants; Z79.890 Hormone replacement therapy; Z79.899 Other long term (current) drug therapy
CPT/HCPCS: 33340; 36430; 80053; 81003; 85027; 85347; 85610; 85730; 86850; 86900; 86901; 87811; 93306; 93312; J0690; J1100; J1644; J2405; J2704; J2720; J3490; Q9967

== ENCOUNTER 2022-04-08 12:56 | Outpatient (CLI) | payer MEDICARE ==
[2022-04-08 13:25] LABS: Hemoglobin 9.4 g/dL (12.0-15.5); Mean Corpuscular HGB CONC 31.1 g/dL (32.0-36.0); Mean Corpuscular Hemoglobin 34.2 pg (27.0-33.0); Mean Corpuscular Volume 109.8 fl (81.6-98.3); Mean Platelet Volume 10.1 fl (7.4-10.4); Platelet Count 156 10x3/uL (150-450); RBC Distribution Width 15.6 % (11.5-14.5); Red Blood Cell (RBC) Count 2.75 10x6/uL (3.90-5.03); White Blood Cell (WBC) Count 3.4 10x3/uL (3.5-10.5)
[2022-04-08 13:38] LABS: Anion Gap 13 mmol/L (10-20); Calcium 9.1 mg/dL (7.8-10.44); Carbon Dioxide 26 mmol/L (23-31); Chloride 106 mmol/L (98-107); Potassium 4.5 mmol/L (3.5-5.1); Sodium 140 mmol/L (136-145)
[2022-04-08 13:59] LABS: BUN (Urea Nitrogen) 23 mg/dL (9.8-20.1); Calc. Creatinine Clearance 0 mL/min (70-130); Estimated GFR 45; Glucose 77 mg/dL (83-110)
== END 2022-04-08 12:57 | disposition home or self-care (01) ==
LOC: LABBT 12:56
PROVIDERS: ATTEND Internal Medicine Cardiovascular Disease
DX: Z01.812 Encounter for preprocedural laboratory examination (principal); I48.0 Paroxysmal atrial fibrillation
CPT/HCPCS: 80048; 85027

== ENCOUNTER 2022-04-13 06:17 | Day surgery (SDC) | payer MEDICARE ==
[2022-04-10 13:12] VITALS: BMI 16.2
[2022-04-13] MEDS ORDERED: PROPOFOL 200 MG/20 ML VIAL ONE (07:42)
== END 2022-04-13 09:05 | disposition home or self-care (01) ==
LOC: SDC 06:17
PROVIDERS: ATTEND Internal Medicine Cardiovascular Disease
PROC: B246ZZ4 Ultrasonography of Right and Left Heart, Transesophageal (ICD-10-PCS; principal; 2022-04-13)
DX: I48.0 Paroxysmal atrial fibrillation (principal); I08.1 Rheumatic disorders of both mitral and tricuspid valves; Z79.890 Hormone replacement therapy; Z79.899 Other long term (current) drug therapy; Z95.0 Presence of cardiac pacemaker; Z95.818 Presence of other cardiac implants and grafts
CPT/HCPCS: 93312; J2704

== ENCOUNTER 2022-08-28 06:20 | Day surgery (SDC) | payer MEDICARE ==
[2022-08-26 11:29] VITALS: BMI 17.6
[2022-08-28 07:34] LABS: Hemoglobin 9.1 g/dL (12.0-16.0); Mean Corpuscular HGB CONC 31.7 g/dL (32.0-36.0); Mean Platelet Volume 7.8 fL (7.4-10.4); Platelet Count 137 10x3/uL (130-400); RBC Distribution Width 13.7 % (11.5-14.5); Red Blood Cell (RBC) Count 2.61 mill/uL (4.20-5.40); White Blood Cell (WBC) Count 3.1 10x3/uL (4.8-10.8)
[2022-08-28 07:35] LABS: #Eosinphils 0.2 thou/uL (0.0-0.7); #Lymphocytes 0.7 thou/uL (1.20-3.40); #Monocytes 0.3 thou/uL (0.11-0.59); #Neutrophils 1.9 thou/uL (1.40-6.50); %Basophils 0.9 % (0.0-1.0); %Eosinophils 6.4 % (0.0-10.0); %Lymphocytes 20.8 % (21.0-51.0); %Monocytes 10.8 % (0.0-10.0)
[2022-08-28 07:49] LABS: Anion Gap 11 mmol/L (10-20); BUN (Urea Nitrogen) 21 mg/dL (9.8-20.1); Calc. Creatinine Clearance 23 mL/min (70-130); Calcium 8.7 mg/dL (7.8-10.44); Carbon Dioxide 28 mmol/L (23-31); Chloride 106 mmol/L (98-107); Estimated GFR 46; Glucose 82 mg/dL (83-110); Potassium 3.9 mmol/L (3.5-5.1); Sodium 141 mmol/L (136-145)
[2022-08-28 07:53] LABS: MDiff Complete? YES; Macrocytosis SLIGHT = 6-15 cells (100X) (0-5/hpf); Platelet Morphology Comment Appears Adequate; Polychromasia SLIGHT = 2-3 cells (100X) (0-2/hpf)
[2022-08-28] MEDS ORDERED: PROPOFOL 200 MG/20 ML VIAL ONE (08:22)
== END 2022-08-28 09:42 | disposition home or self-care (01) ==
LOC: SDC 06:20
PROVIDERS: ATTEND Internal Medicine Cardiovascular Disease
PROC: B24BZZ4 Ultrasonography of Heart with Aorta, Transesophageal (ICD-10-PCS; principal; 2022-08-28)
DX: I48.0 Paroxysmal atrial fibrillation (principal); I34.0 Nonrheumatic mitral (valve) insufficiency; I49.5 Sick sinus syndrome; I13.0 Hypertensive heart and chronic kidney disease with heart failure and stage 1 through stage 4 chronic kidney disease, or unspecified chronic kidney disease; N18.30 Chronic kidney disease, stage 3 unspecified; I50.30 Unspecified diastolic (congestive) heart failure; E03.9 Hypothyroidism, unspecified; F03.90 Unspecified dementia, unspecified severity, without behavioral disturbance, psychotic disturbance, mood disturbance, and anxiety; Z95.818 Presence of other cardiac implants and grafts; Z95.0 Presence of cardiac pacemaker; Z79.02 Long term (current) use of antithrombotics/antiplatelets; Z79.82 Long term (current) use of aspirin; Z79.890 Hormone replacement therapy; Z79.899 Other long term (current) drug therapy
CPT/HCPCS: 36415; 80048; 85025; 93312

== ENCOUNTER 2022-10-13 06:02 | Day surgery (SDC) | payer MEDICARE ==
[2022-10-09 11:55] VITALS: BMI 17.6
[2022-10-09 12:59] LABS: Hemoglobin 9.4 g/dL (12.0-15.5); Mean Corpuscular HGB CONC 30.4 g/dL (32.0-36.0); Mean Corpuscular Hemoglobin 33.9 pg (27.0-33.0); Mean Corpuscular Volume 111.6 fl (81.6-98.3); Mean Platelet Volume 10.7 fl (7.4-10.4); Platelet Count 151 10x3/uL (150-450); RBC Distribution Width 14.8 % (11.5-14.5); Red Blood Cell (RBC) Count 2.77 10x6/uL (3.90-5.03)
[2022-10-09 13:12] LABS: PTT 25.7 sec (22.0-33.0); Prothrombin Time 10.7 sec (9.5-12.1)
[2022-10-09 13:19] LABS: ALT (SGPT) 19 U/L (8-55); AST (SGOT) 19 U/L (5-34); Albumin 4.3 g/dL (3.4-4.8); Alkaline Phosphatase 88 U/L (40-110); Anion Gap 13 mmol/L (10-20); BUN (Urea Nitrogen) 23 mg/dL (9.8-20.1); Bilirubin, Direct 0.2 mg/dL (0.1-0.3); Bilirubin, Total 0.5 mg/dL (0.2-1.2); Calc. Creatinine Clearance 20 mL/min (70-130); Carbon Dioxide 27 mmol/L (23-31); Chloride 107 mmol/L (98-107); Estimated GFR 40; Glucose 88 mg/dL (83-110); Potassium 4.8 mmol/L (3.5-5.1); Protein, Total 6.9 g/dL (5.8-8.1); Sodium 142 mmol/L (136-145)
[2022-10-13] MEDS ORDERED: Lidocaine 1% PF 5 ML VIAL ONE (08:01)
[2022-10-13] MEDS ORDERED: PROPOFOL 200 MG/20 ML VIAL ONE (08:01)
== END 2022-10-13 09:10 | disposition home or self-care (01) ==
LOC: SDC 06:02
PROVIDERS: ATTEND Internal Medicine Cardiovascular Disease
PROC: 5A2204Z Restoration of Cardiac Rhythm, Single (ICD-10-PCS; principal; 2022-10-13)
DX: I48.19 Other persistent atrial fibrillation (principal); I49.5 Sick sinus syndrome; E03.9 Hypothyroidism, unspecified; I13.0 Hypertensive heart and chronic kidney disease with heart failure and stage 1 through stage 4 chronic kidney disease, or unspecified chronic kidney disease; N18.30 Chronic kidney disease, stage 3 unspecified; I50.43 Acute on chronic combined systolic (congestive) and diastolic (congestive) heart failure; F03.90 Unspecified dementia, unspecified severity, without behavioral disturbance, psychotic disturbance, mood disturbance, and anxiety; M19.90 Unspecified osteoarthritis, unspecified site; G25.81 Restless legs syndrome; Z79.82 Long term (current) use of aspirin; Z79.890 Hormone replacement therapy; Z79.899 Other long term (current) drug therapy; Z95.0 Presence of cardiac pacemaker; Z95.818 Presence of other cardiac implants and grafts
CPT/HCPCS: 80048; 80076; 85027; 85610; 85730; 92960; 93005; 93010; J2704

== ENCOUNTER 2022-12-06 11:12 | Inpatient (IN) | payer MEDICARE ==
[~2022-12-06 11:12] MED LIST: Iopamidol-370 76% 500 ML MDV (1 ML CHARGE) ONE
[2022-12-06 13:14] LABS: #Eosinphils 0.1 thou/uL (0.0-0.7); #Monocytes 0.5 thou/uL (0.11-0.59); #Neutrophils 4.3 thou/uL (1.40-6.50); %Basophils 0.2 % (0.0-1.0); %Eosinophils 1.1 % (0.0-10.0); %Lymphocytes 14.2 % (21.0-51.0); %Neutrophils 76.1 % (42.0-75.0); Hemoglobin 9.2 g/dL (12.0-16.0); Mean Corpuscular HGB CONC 31.8 g/dL (32.0-36.0); Mean Corpuscular Hemoglobin 34.7 pg (27.0-31.0); Mean Corpuscular Volume 109.1 fl (78.0-98.0); Mean Platelet Volume 10.7 fL (7.4-10.4); Platelet Count 135 10x3/uL (130-400); RBC Distribution Width 15.2 % (11.5-14.5); Red Blood Cell (RBC) Count 2.65 mill/uL (4.20-5.40); White Blood Cell (WBC) Count 5.6 10x3/uL (4.8-10.8)
[2022-12-06 13:28] LABS: ALT (SGPT) 15 U/L (8-55); AST (SGOT) 25 U/L (5-34); Alkaline Phosphatase 84 U/L (40-110); Anion Gap 14 mmol/L (10-20); BUN (Urea Nitrogen) 18 mg/dL (9.8-20.1); Bilirubin, Total 0.4 mg/dL (0.2-1.2); Calc. Creatinine Clearance 0 mL/min (70-130); Calcium 9.2 mg/dL (7.8-10.44); Carbon Dioxide 25 mmol/L (23-31); Chloride 105 mmol/L (98-107); Estimated GFR 44; Glucose 91 mg/dL (83-110); Lipase 32 U/L (8-78); Potassium 4.8 mmol/L (3.5-5.1); Sodium 139 mmol/L (136-145)
[2022-12-06 16:42] LABS: Troponin I Less than 0.010 ng/mL (< 0.028)
[2022-12-06] MEDS ORDERED: Ondansetron PF 4 MG/2 ML Vial IVP PRN (18:06)
[2022-12-06] MEDS ORDERED: Ondansetron ODT 4 MG TAB PO PRN (18:06)
[2022-12-06] MEDS ORDERED: Acetaminophen 650 MG Suppository PR PRN (18:06)
[2022-12-06] MEDS ORDERED: Acetaminophen 325 MG TAB PO PRN (18:06)
[2022-12-06] MEDS ORDERED: Pantoprazole 40 MG VIAL IVP SCH (19:30)
[2022-12-06] MEDS ORDERED: Ibuprofen 600 MG TAB PO SCH (20:00)
[2022-12-06 20:12] LABS: Troponin I Less than 0.010 ng/mL (< 0.028)
[2022-12-06] MEDS ORDERED: Pantoprazole 40 MG VIAL ONE (20:15)
[2022-12-06 22:54] VITALS: BMI 18.7
[2022-12-06 23:13] LABS: Troponin I Less than 0.010 ng/mL (< 0.028)
[2022-12-07] MEDS ORDERED: QUEtiapine 100 MG TAB PO SCH (00:45)
[2022-12-07] MEDS ORDERED: rOPINIRole HCl 1 MG TAB PO SCH (01:00)
[2022-12-07] MEDS ORDERED: traZODone HCl 50 MG TAB PO SCH (01:00)
[2022-12-07] MEDS ORDERED: traZODone HCl 50 MG TAB ONE (01:09)
[2022-12-07 05:20] LABS: #Eosinphils 0.1 thou/uL (0.0-0.7); #Monocytes 0.4 thou/uL (0.11-0.59); #Neutrophils 3.5 thou/uL (1.40-6.50); %Basophils 0.2 % (0.0-1.0); %Eosinophils 1.9 % (0.0-10.0); %Lymphocytes 16.4 % (21.0-51.0); %Monocytes 9.1 % (0.0-10.0); Hemoglobin 9.6 g/dL (12.0-16.0); Mean Corpuscular HGB CONC 30.6 g/dL (32.0-36.0); Mean Corpuscular Volume 111.3 fl (78.0-98.0); Mean Platelet Volume 10.4 fL (7.4-10.4); Platelet Count 132 10x3/uL (130-400); RBC Distribution Width 15.1 % (11.5-14.5); Red Blood Cell (RBC) Count 2.82 mill/uL (4.20-5.40); White Blood Cell (WBC) Count 4.8 10x3/uL (4.8-10.8)
[2022-12-07 05:40] LABS: Anion Gap 14 mmol/L (10-20); BUN (Urea Nitrogen) 18 mg/dL (9.8-20.1); Calc. Creatinine Clearance 22 mL/min (70-130); Calcium 8.9 mg/dL (7.8-10.44); Carbon Dioxide 22 mmol/L (23-31); Chloride 108 mmol/L (98-107); Estimated GFR 42; Glucose 92 mg/dL (83-110); Potassium 3.8 mmol/L (3.5-5.1); Sodium 140 mmol/L (136-145)
[2022-12-07 05:49] LABS: CellaVision Operator ID LAB.GE; Macrocytosis SLIGHT = 6-15 cells HPF (0-5); Platelet Adequacy Comment Platelets Normal; Polychromasia SLIGHT = 2-3 cells HPF (0-2)
[2022-12-07] MEDS ORDERED: Pantoprazole 40 MG VIAL ONE (08:56)
[2022-12-07] MEDS: Pantoprazole 40 MG VIAL IVP SCH (09:50)
[2022-12-07] MEDS: rOPINIRole HCl 0.5 MG TAB PO SCH (10:23)
[2022-12-07] MEDS: Mirtazapine 30 MG TAB PO SCH (21:00)
[2022-12-07] MEDS: QUEtiapine 100 MG TAB PO SCH (21:00)
[2022-12-07] MEDS: rOPINIRole HCl 1 MG TAB PO SCH (21:00)
[2022-12-07] MEDS: Colchicine 0.3 MG TAB PO SCH (21:01)
[2022-12-07] MEDS: traZODone HCl 50 MG TAB PO SCH (21:04)
[2022-12-08] MEDS: Amiodarone 200 MG TAB PO SCH (09:00)
[2022-12-08] MEDS: rOPINIRole HCl 0.5 MG TAB PO SCH (09:00)
[2022-12-08] MEDS: Pantoprazole 40 MG VIAL IVP SCH (09:01)
[2022-12-08] MEDS: Colchicine 0.3 MG TAB PO SCH ×2 (09:05→20:45)
[2022-12-08] MEDS: Mirtazapine 30 MG TAB PO SCH (20:44)
[2022-12-08] MEDS: rOPINIRole HCl 1 MG TAB PO SCH (20:45)
[2022-12-08] MEDS: QUEtiapine 100 MG TAB PO SCH (20:45)
[2022-12-08] MEDS: traZODone HCl 50 MG TAB PO SCH (20:45)
[2022-12-09] MEDS ORDERED: traMADol HCl 50 MG TAB PO PRN (00:07)
[2022-12-09 05:46] LABS: #Eosinphils 0.1 thou/uL (0.0-0.7); #Monocytes 0.4 thou/uL (0.11-0.59); #Neutrophils 2.4 thou/uL (1.40-6.50); %Basophils 0.3 % (0.0-1.0); %Lymphocytes 20.8 % (21.0-51.0); %Monocytes 10.3 % (0.0-10.0); %Neutrophils 65.3 % (42.0-75.0); Hemoglobin 10.3 g/dL (12.0-16.0); Mean Corpuscular HGB CONC 31.2 g/dL (32.0-36.0); Mean Corpuscular Volume 108.9 fl (78.0-98.0); Mean Platelet Volume 10.7 fL (7.4-10.4); Platelet Count 138 10x3/uL (130-400); RBC Distribution Width 15.2 % (11.5-14.5); Red Blood Cell (RBC) Count 3.03 mill/uL (4.20-5.40); White Blood Cell (WBC) Count 3.7 10x3/uL (4.8-10.8)
[2022-12-09 06:48] LABS: Anion Gap 14 mmol/L (10-20); BUN (Urea Nitrogen) 21 mg/dL (9.8-20.1); Calc. Creatinine Clearance 20 mL/min (70-130); Calcium 9.3 mg/dL (7.8-10.44); Carbon Dioxide 26 mmol/L (23-31); Chloride 102 mmol/L (98-107); Estimated GFR 38; Glucose 92 mg/dL (83-110); Potassium 4.3 mmol/L (3.5-5.1); Sodium 138 mmol/L (136-145)
[2022-12-09] MEDS: rOPINIRole HCl 0.5 MG TAB PO SCH (08:26)
[2022-12-09] MEDS: Amiodarone 200 MG TAB PO SCH (08:26)
[2022-12-09] MEDS: Colchicine 0.3 MG TAB PO SCH (08:27)
[2022-12-09 12:11] VITALS: TEMP 97.6
[2022-12-09 16:39] VITALS: BP 117/65
== END 2022-12-09 18:11 | disposition home or self-care (01) | DRG 315 ==
LOC: ERS 11:12 → ERHOLD 17:45 → OBSVTOIN 12-07 11:29 → 2SW 12-07 12:30
PROVIDERS: ADMIT Student in an Organized Health Care Education/Training Program; ATTEND Internal Medicine
DX: I30.1 Infective pericarditis (principal); J90 Pleural effusion, not elsewhere classified; J98.11 Atelectasis; I31.9 Disease of pericardium, unspecified; F03.90 Unspecified dementia, unspecified severity, without behavioral disturbance, psychotic disturbance, mood disturbance, and anxiety; I50.9 Heart failure, unspecified; E03.9 Hypothyroidism, unspecified; D64.9 Anemia, unspecified; R91.1 Solitary pulmonary nodule; I48.0 Paroxysmal atrial fibrillation; G51.0 Bell's palsy; I49.5 Sick sinus syndrome; B97.89 Other viral agents as the cause of diseases classified elsewhere; Z79.899 Other long term (current) drug therapy; Z79.82 Long term (current) use of aspirin; Z95.0 Presence of cardiac pacemaker; Z90.710 Acquired absence of both cervix and uterus
CPT/HCPCS: 36415; 71045; 71275; 80048; 80053; 83690; 83880; 84484; 85025; 85379; 86140; 93005; 93306; 96374; 96376; C9113; G0378; Q9967

== ENCOUNTER 2023-01-19 06:43 | Day surgery (SDC) | payer MEDICARE ==
[2023-01-18 11:22] VITALS: BMI 18.5
[2023-01-19 07:45] LABS: #Eosinphils 0.1 thou/uL (0.0-0.7); #Monocytes 0.4 thou/uL (0.11-0.59); #Neutrophils 1.8 thou/uL (1.40-6.50); %Basophils 0.7 % (0.0-1.0); %Lymphocytes 25.7 % (21.0-51.0); %Monocytes 11.6 % (0.0-10.0); %Neutrophils 57.7 % (42.0-75.0); Hematocrit 30.4 % (36.0-47.0); Hemoglobin 9.3 g/dL (12.0-16.0); Mean Corpuscular HGB CONC 30.6 g/dL (32.0-36.0); Mean Corpuscular Hemoglobin 33.8 pg (27.0-31.0); Mean Corpuscular Volume 110.5 fl (78.0-98.0); Mean Platelet Volume 10.5 fL (7.4-10.4); Platelet Count 156 10x3/uL (130-400); RBC Distribution Width 15.9 % (11.5-14.5); Red Blood Cell (RBC) Count 2.75 mill/uL (4.20-5.40)
[2023-01-19] MEDS ORDERED: Lidocaine 1% PF 5 ML VIAL ONE (08:00)
[2023-01-19] MEDS ORDERED: PROPOFOL 200 MG/20 ML VIAL ONE (08:00)
[2023-01-19 08:08] LABS: Anion Gap 12 mmol/L (10-20); BUN (Urea Nitrogen) 22 mg/dL (9.8-20.1); Calc. Creatinine Clearance 20 mL/min (70-130); Calcium 9.3 mg/dL (7.8-10.44); Carbon Dioxide 26 mmol/L (23-31); Chloride 107 mmol/L (98-107); Estimated GFR 38; Glucose 88 mg/dL (83-110); Potassium 3.9 mmol/L (3.5-5.1); Sodium 141 mmol/L (136-145)
[2023-01-19 09:44] LABS: CellaVision Operator ID LAB.GE; Large Platelets 1.7 % (0-5); Macrocytosis MODERATE=16-30 cells HPF (0-5); Platelet Adequacy Comment Platelets Normal; Polychromasia SLIGHT = 2-3 cells HPF (0-2); Smudge Cells 7.8 %
== END 2023-01-19 08:55 | disposition home or self-care (01) ==
LOC: SDC 06:43
PROVIDERS: ATTEND Internal Medicine Cardiovascular Disease
DX: I48.91 Unspecified atrial fibrillation (principal); I31.39 Other pericardial effusion (noninflammatory); I48.0 Paroxysmal atrial fibrillation; I48.4 Atypical atrial flutter; I49.5 Sick sinus syndrome; I87.323 Chronic venous hypertension (idiopathic) with inflammation of bilateral lower extremity; I10 Essential (primary) hypertension; E03.9 Hypothyroidism, unspecified; G51.0 Bell's palsy; F03.90 Unspecified dementia, unspecified severity, without behavioral disturbance, psychotic disturbance, mood disturbance, and anxiety; Z95.818 Presence of other cardiac implants and grafts; Z79.890 Hormone replacement therapy; Z79.899 Other long term (current) drug therapy; Z95.0 Presence of cardiac pacemaker; Z79.82 Long term (current) use of aspirin; Z90.710 Acquired absence of both cervix and uterus
CPT/HCPCS: 80048; 85025; 92960; 93005; 93010; J2704

== ENCOUNTER 2023-03-30 13:08 | Emergency (ER) | payer MEDICARE ==
[2023-03-30 14:22] LABS: #Eosinphils 0.1 thou/uL (0.0-0.7); #Monocytes 0.4 thou/uL (0.11-0.59); #Neutrophils 4.2 thou/uL (1.40-6.50); %Basophils 0.4 % (0.0-1.0); %Eosinophils 2.2 % (0.0-10.0); %Lymphocytes 11.5 % (21.0-51.0); %Monocytes 7.2 % (0.0-10.0); %Neutrophils 78.3 % (42.0-75.0); Hemoglobin 10.1 g/dL (12.0-16.0); Mean Corpuscular HGB CONC 30.6 g/dL (32.0-36.0); Mean Corpuscular Hemoglobin 34.1 pg (27.0-31.0); Mean Corpuscular Volume 111.5 fl (78.0-98.0); Mean Platelet Volume 10.3 fL (7.4-10.4); Platelet Count 144 10x3/uL (130-400); Red Blood Cell (RBC) Count 2.96 mill/uL (4.20-5.40); White Blood Cell (WBC) Count 5.4 10x3/uL (4.8-10.8)
[2023-03-30 14:31] LABS: Bacteria/HPF None Seen HPF (None Seen); Bilirubin Negative (Negative); Blood, Urine Negative (Negative); CAUTI Indications for Culture Alt mental st,lethar; Clarity Clear (Clear); Glucose, Urine (Dipstick) Normal (Negative); Ketone, Urine Negative (Negative); Leukocyte Negative Leu/uL (Negative); Nitrite Negative (Negative); Protein, Urine (Dipstick) 20 mg/dL (Neg-Trace); RBC/HPF 0-3 HPF (0-3); Specific Gravity, Urine 1.028 (1.002-1.036); Squamous Epithelial 0-3 HPF (0-3); WBC/HPF 0-3 HPF (0-3); pH, Urine 5.5 (5.0-9.0)
[2023-03-30 14:32] LABS: Urine Culture Reflex No No
[2023-03-30 14:43] LABS: Anisocytosis SLIGHT = 6-15 cells HPF (0-5); CellaVision Operator ID LAB.MJL; Ovalocytes SLIGHT = 2-5 cells HPF (0-1); Platelet Adequacy Comment Platelets Normal; Polychromasia SLIGHT = 2-3 cells HPF (0-2)
[2023-03-30 14:48] LABS: ALT (SGPT) 12 U/L (8-55); AST (SGOT) 21 U/L (5-34); Albumin 4.4 g/dL (3.4-4.8); Alkaline Phosphatase 97 U/L (40-110); Anion Gap 15 mmol/L (10-20); BUN (Urea Nitrogen) 22 mg/dL (9.8-20.1); Bilirubin, Total 0.3 mg/dL (0.2-1.2); Calc. Creatinine Clearance 0 mL/min (70-130); Calcium 9.6 mg/dL (7.8-10.44); Carbon Dioxide 23 mmol/L (23-31); Chloride 107 mmol/L (98-107); Estimated GFR 51; Glucose 82 mg/dL (83-110); Potassium 3.9 mmol/L (3.5-5.1); Protein, Total 7.4 g/dL (5.8-8.1); Sodium 141 mmol/L (136-145)
[2023-03-30 14:50] LABS: Troponin I Less than 0.010 ng/mL (< 0.028)
== END 2023-03-30 15:15 | disposition home or self-care (01) ==
LOC: ERS 13:08
DX: R68.83 Chills (without fever) (principal); E03.9 Hypothyroidism, unspecified; I10 Essential (primary) hypertension
CPT/HCPCS: 36415; 80053; 81001; 83880; 84484; 85025; 93005

== ENCOUNTER 2023-04-03 00:35 | Inpatient (IN) | payer MEDICARE ==
[2023-04-03] MEDS ORDERED: fentaNYL 50 mcg/mL 1 mL Vial ONE ×3 (01:39→12:58)
[2023-04-03 02:32] LABS: #Eosinphils 0.1 thou/uL (0.0-0.7); #Monocytes 0.5 thou/uL (0.11-0.59); #Neutrophils 5.6 thou/uL (1.40-6.50); %Basophils 0.1 % (0.0-1.0); %Eosinophils 1.5 % (0.0-10.0); %Lymphocytes 8.8 % (21.0-51.0); %Monocytes 6.6 % (0.0-10.0); %Neutrophils 82.1 % (42.0-75.0); Hematocrit 26.2 % (36.0-47.0); Hemoglobin 8.1 g/dL (12.0-16.0); Mean Corpuscular HGB CONC 30.9 g/dL (32.0-36.0); Mean Corpuscular Hemoglobin 34.3 pg (27.0-31.0); Mean Platelet Volume 10.3 fL (7.4-10.4); Platelet Count 136 10x3/uL (130-400); RBC Distribution Width 15.2 % (11.5-14.5); Red Blood Cell (RBC) Count 2.36 mill/uL (4.20-5.40); White Blood Cell (WBC) Count 6.8 10x3/uL (4.8-10.8)
[2023-04-03 02:56] LABS: ALT (SGPT) 18 U/L (8-55); AST (SGOT) 25 U/L (5-34); Alkaline Phosphatase 83 U/L (40-110); Anion Gap 15 mmol/L (10-20); BUN (Urea Nitrogen) 28 mg/dL (9.8-20.1); Bilirubin, Total 0.3 mg/dL (0.2-1.2); Calc. Creatinine Clearance 0 mL/min (70-130); Calcium 8.8 mg/dL (7.8-10.44); Carbon Dioxide 24 mmol/L (23-31); Chloride 109 mmol/L (98-107); Estimated GFR 43; Globulin 2.6 g/dL (2.4-3.5); Glucose 111 mg/dL (83-110); Potassium 4.5 mmol/L (3.5-5.1); Protein, Total 6.6 g/dL (5.8-8.1); Sodium 143 mmol/L (136-145)
[2023-04-03 02:59] LABS: Troponin I Less than 0.010 ng/mL (< 0.028)
[2023-04-03 03:09] LABS: Anisocytosis MODERATE=16-30 cells HPF (0-5); CellaVision Operator ID LAB.JMM; Macrocytosis SLIGHT = 6-15 cells HPF (0-5); Ovalocytes SLIGHT = 2-5 cells HPF (0-1); Platelet Adequacy Comment Platelets Normal
[2023-04-03] MEDS ORDERED: Ipratropium/Albuterol 3 ML NEB NEB PRN (03:54)
[2023-04-03] MEDS ORDERED: Ondansetron PF 4 MG/2 ML Vial IVP PRN (03:54)
[2023-04-03] MEDS ORDERED: Fluticasone Propionate Nasal Spray 16 gm Bottle NASAL PRN (03:58)
[2023-04-03] MEDS ORDERED: Sodium Chloride 0.9% 1,000 ML IV SCH (04:00)
[2023-04-03] MEDS ORDERED: Acetaminophen 325 MG TAB PO SCH (04:00)
[2023-04-03] MEDS: Acetaminophen 500 MG TAB PO SCH ×3 (05:27→21:00)
[2023-04-03] MEDS: Levothyroxine Sodium 100 MCG TAB PO SCH (05:28)
[2023-04-03 05:47] VITALS: BMI 16.7
[2023-04-03] MEDS ORDERED: TETANUS, DIPHTHERIA TOX,ADULT (TDVAX) 0.5 ML VIAL IM ONE (09:00)
[2023-04-03] MEDS ORDERED: Gabapentin 100 MG CAP PO SCH (09:15)
[2023-04-03 09:25] LABS: #Monocytes 0.5 thou/uL (0.11-0.59); #Neutrophils 6.5 thou/uL (1.40-6.50); %Basophils 0.1 % (0.0-1.0); %Eosinophils 0.1 % (0.0-10.0); %Monocytes 6.9 % (0.0-10.0); %Neutrophils 87.4 % (42.0-75.0); Hematocrit 23.4 % (36.0-47.0); Hemoglobin 7.3 g/dL (12.0-16.0); Mean Corpuscular HGB CONC 31.2 g/dL (32.0-36.0); Mean Corpuscular Hemoglobin 34.8 pg (27.0-31.0); Mean Corpuscular Volume 111.4 fl (78.0-98.0); Mean Platelet Volume 10.6 fL (7.4-10.4); Platelet Count 136 10x3/uL (130-400); RBC Distribution Width 15.2 % (11.5-14.5); White Blood Cell (WBC) Count 7.4 10x3/uL (4.8-10.8)
[2023-04-03] MEDS ORDERED: CEFAZOLIN 2 GM in Sodium Chloride 0.9% 100 ML IVPB SCH (10:00)
[2023-04-03] MEDS: Amiodarone 200 MG TAB PO SCH ×2 (10:07→21:28)
[2023-04-03] MEDS: Ferrous Sulfate 325 MG TAB PO SCH (10:08)
[2023-04-03] MEDS: Famotidine/PF 20 mg/2ml Vial SLOW IVP SCH (10:08)
[2023-04-03 10:51] LABS: Bacteria/HPF None Seen HPF (None Seen); Bilirubin Negative (Negative); Blood, Urine Negative (Negative); CAUTI Indications for Culture Alt mental st,lethar; Clarity Clear (Clear); Glucose, Urine (Dipstick) Normal (Negative); Ketone, Urine Negative (Negative); Leukocyte Negative Leu/uL (Negative); Nitrite Negative (Negative); Protein, Urine (Dipstick) Negative (Neg-Trace); RBC/HPF None Seen HPF (0-3); Squamous Epithelial None Seen HPF (0-3); Urobilinogen Normal mg/dL (Less than 2); WBC/HPF 0-3 HPF (0-3); pH, Urine 6.5 (5.0-9.0)
[2023-04-03 10:52] LABS: Specific Gravity, Urine 1.046 (1.002-1.036)
[2023-04-03 10:53] LABS: Urine Culture Reflex No No
[2023-04-03] MEDS ORDERED: CEFAZOLIN 2 GM VIAL ONE (12:01)
[2023-04-03] MEDS ORDERED: Sodium Chloride 0.9% 100 ML ONE (12:02)
[2023-04-03] MEDS ORDERED: Rocuronium Bromide 10 MG/ML (10ML VIAL) ONE (12:58)
[2023-04-03] MEDS ORDERED: Lidocaine 1% PF 5 ML VIAL ONE (12:58)
[2023-04-03] MEDS ORDERED: PHENYLEPHRINE-NS 100 MCG/ML 10 ML SYRINGE ONE (12:58)
[2023-04-03] MEDS ORDERED: PROPOFOL 200 MG/20 ML VIAL ONE (12:58)
[2023-04-03] MEDS ORDERED: Ondansetron PF 4 MG/2 ML Vial ONE (12:58)
[2023-04-03] MEDS ORDERED: Promethazine HCl 25 MG/ML VIAL IM PRN (14:03)
[2023-04-03] MEDS ORDERED: Ondansetron HCl/PF 4 MG/2 ML Vial IVP PRN (14:03)
[2023-04-03] MEDS ORDERED: Iopamidol 370 76% 100 ML VIAL ONE (15:46)
[2023-04-03] MEDS: rOPINIRole HCl 1 MG TAB PO SCH (21:29)
[2023-04-03] MEDS: traZODone HCl 50 MG TAB PO SCH (21:29)
[2023-04-03] MEDS: CEFAZOLIN 2 GM in Sodium Chloride 0.9% 100 ML IVPB SCH (21:30)
[2023-04-04] MEDS: Acetaminophen 500 MG TAB PO SCH ×5 (00:05→23:42)
[2023-04-04] MEDS: CEFAZOLIN 2 GM in Sodium Chloride 0.9% 100 ML IVPB SCH (06:43)
[2023-04-04] MEDS: Levothyroxine Sodium 100 MCG TAB PO SCH (06:45)
[2023-04-04 06:46] LABS: #Monocytes 0.6 thou/uL (0.11-0.59); #Neutrophils 4.9 thou/uL (1.40-6.50); %Basophils 0.3 % (0.0-1.0); %Eosinophils 0.2 % (0.0-10.0); %Lymphocytes 10.1 % (21.0-51.0); %Monocytes 9.3 % (0.0-10.0); %Neutrophils 79.8 % (42.0-75.0); Hematocrit 26.2 % (36.0-47.0); Hemoglobin 8.3 g/dL (12.0-16.0); Mean Corpuscular HGB CONC 31.7 g/dL (32.0-36.0); Mean Corpuscular Hemoglobin 32.8 pg (27.0-31.0); Mean Platelet Volume 11.1 fL (7.4-10.4); Platelet Count 119 10x3/uL (130-400); Red Blood Cell (RBC) Count 2.53 mill/uL (4.20-5.40); White Blood Cell (WBC) Count 6.2 10x3/uL (4.8-10.8)
[2023-04-04 06:47] LABS: Mean Corpuscular Volume 103.6 fl (78.0-98.0)
[2023-04-04 06:49] LABS: INR-International Normal Ratio 1.1; Prothrombin Time 14.7 sec (12.0-14.7)
[2023-04-04 06:50] LABS: PTT 35.7 sec (22.9-36.1)
[2023-04-04 07:10] LABS: Anion Gap 13 mmol/L (10-20); BUN (Urea Nitrogen) 24 mg/dL (9.8-20.1); Calc. Creatinine Clearance 20 mL/min (70-130); Calcium 8.1 mg/dL (7.8-10.44); Carbon Dioxide 24 mmol/L (23-31); Chloride 107 mmol/L (98-107); Estimated GFR 43; Glucose 132 mg/dL (83-110); Sodium 140 mmol/L (136-145)
[2023-04-04] MEDS: Aspirin 81 mg Enteric Coated Tablet PO SCH ×2 (09:08→20:25)
[2023-04-04] MEDS: Amiodarone 200 MG TAB PO SCH ×2 (09:09→20:25)
[2023-04-04] MEDS: Famotidine/PF 20 mg/2ml Vial SLOW IVP SCH (09:09)
[2023-04-04] MEDS: Ferrous Sulfate 325 MG TAB PO SCH (09:10)
[2023-04-04] MEDS: Gabapentin 100 MG CAP PO SCH (09:10)
[2023-04-04] MEDS ORDERED: Acetaminophen 325 MG TAB ONE (14:00)
[2023-04-04] MEDS: Morphine 2 MG/ML VIAL SLOW IVP PRN (15:24)
[2023-04-04] MEDS: traZODone HCl 50 MG TAB PO SCH (20:25)
[2023-04-04] MEDS: rOPINIRole HCl 1 MG TAB PO SCH (20:25)
[2023-04-05] MEDS: Acetaminophen 500 MG TAB PO SCH ×4 (06:21→20:07)
[2023-04-05] MEDS: Levothyroxine Sodium 100 MCG TAB PO SCH (06:22)
[2023-04-05] MEDS: Ferrous Sulfate 325 MG TAB PO SCH (09:17)
[2023-04-05] MEDS: Gabapentin 100 MG CAP PO SCH (09:18)
[2023-04-05] MEDS: Aspirin 81 mg Enteric Coated Tablet PO SCH ×2 (09:18→20:09)
[2023-04-05] MEDS: Famotidine/PF 20 mg/2ml Vial SLOW IVP SCH (09:19)
[2023-04-05] MEDS: Amiodarone 200 MG TAB PO SCH ×2 (09:20→20:09)
[2023-04-05] MEDS: Morphine 2 MG/ML VIAL SLOW IVP PRN (14:16)
[2023-04-05] MEDS: rOPINIRole HCl 1 MG TAB PO SCH (20:08)
[2023-04-05] MEDS: traZODone HCl 50 MG TAB PO SCH (20:09)
[2023-04-06] MEDS: Acetaminophen 500 MG TAB PO SCH (06:27)
[2023-04-06] MEDS: Levothyroxine Sodium 100 MCG TAB PO SCH (06:27)
[2023-04-06] MEDS ORDERED: Lactated Ringer's 500 ML IV SCH (08:30)
[2023-04-06] MEDS: Aspirin 81 mg Enteric Coated Tablet PO SCH (09:02)
[2023-04-06] MEDS: Amiodarone 200 MG TAB PO SCH (09:02)
[2023-04-06] MEDS: Gabapentin 100 MG CAP PO SCH (09:03)
[2023-04-06] MEDS: Ferrous Sulfate 325 MG TAB PO SCH (09:04)
[2023-04-06] MEDS: Famotidine/PF 20 mg/2ml Vial SLOW IVP SCH (09:04)
[2023-04-06] MEDS ORDERED: Acetaminophen 500 MG TAB PO SCH (09:12)
[2023-04-06] MEDS ORDERED: Acetaminophen 325 MG TAB PO SCH (12:00)
[2023-04-06] MEDS ORDERED: Acetaminophen/Codeine 30-300mg Tablet PO SCH (12:00)
[2023-04-06 12:04] VITALS: BP 107/59; TEMP 97.8
== END 2023-04-06 16:34 | DRG 480 ==
LOC: ERS 00:35 → SURG B 02:42
PROVIDERS: ADMIT Specialist; ATTEND Specialist
PROC: 0QS706Z Reposition Left Upper Femur with Intramedullary Internal Fixation Device, Open Approach (ICD-10-PCS; principal; 2023-04-03)
PROC: 30233N1 Transfusion of Nonautologous Red Blood Cells into Peripheral Vein, Percutaneous Approach (ICD-10-PCS; 2023-04-03)
PROC: 0T2BX0Z Change Drainage Device in Bladder, External Approach (ICD-10-PCS; 2023-04-05)
DX: S72.142A Displaced intertrochanteric fracture of left femur, initial encounter for closed fracture (principal); G93.41 Metabolic encephalopathy; N17.9 Acute kidney failure, unspecified; E44.0 Moderate protein-calorie malnutrition; Z68.1 Body mass index [BMI] 19.9 or less, adult; I48.91 Unspecified atrial fibrillation; E03.9 Hypothyroidism, unspecified; F03.90 Unspecified dementia, unspecified severity, without behavioral disturbance, psychotic disturbance, mood disturbance, and anxiety; I11.0 Hypertensive heart disease with heart failure; I50.9 Heart failure, unspecified; W19.XXXA Unspecified fall, initial encounter; R33.9 Retention of urine, unspecified; Z95.0 Presence of cardiac pacemaker; Z90.710 Acquired absence of both cervix and uterus; Y92.000 Kitchen of unspecified non-institutional (private) residence as the place of occurrence of the external cause
CPT/HCPCS: 36415; 36416; 36430; 70450; 71045; 71260; 72125; 72170; 74177; 80048; 80053; 81001; 83735; 83880; 84484; 85025; 85610; 85730; 86850; 86900; 86901; 93005; 96374; C1713; J2272; J2405; J2704; J3010; J3490; J7120; P9016; Q9967; S0028

== ENCOUNTER 2023-05-27 13:53 | Emergency (ER) | payer MEDICARE ==
[2023-05-27 15:21] LABS: #Monocytes 0.7 thou/uL (0.11-0.59); #Neutrophils 6.7 thou/uL (1.40-6.50); %Basophils 0.1 % (0.0-1.0); %Eosinophils 0.1 % (0.0-10.0); %Lymphocytes 6.4 % (21.0-51.0); %Monocytes 8.2 % (0.0-10.0); %Neutrophils 84.6 % (42.0-75.0); Hematocrit 31.1 % (36.0-47.0); Hemoglobin 9.7 g/dL (12.0-16.0); Mean Corpuscular HGB CONC 31.2 g/dL (32.0-36.0); Mean Corpuscular Hemoglobin 33.7 pg (27.0-31.0); Mean Platelet Volume 9.6 fL (7.4-10.4); Platelet Count 235 10x3/uL (130-400); RBC Distribution Width 16.8 % (11.5-14.5); Red Blood Cell (RBC) Count 2.88 mill/uL (4.20-5.40)
[2023-05-27 16:02] LABS: ALT (SGPT) 12 U/L (8-55); AST (SGOT) 20 U/L (5-34); Albumin 3.8 g/dL (3.4-4.8); Alkaline Phosphatase 157 U/L (40-110); Anion Gap 20 mmol/L (10-20); BUN (Urea Nitrogen) 24 mg/dL (9.8-20.1); Bilirubin, Total 0.6 mg/dL (0.2-1.2); Calc. Creatinine Clearance 0 mL/min (70-130); Calcium 8.8 mg/dL (7.8-10.44); Carbon Dioxide 20 mmol/L (23-31); Chloride 102 mmol/L (98-107); Estimated GFR 32; Globulin 3.5 g/dL (2.4-3.5); Glucose 124 mg/dL (83-110); Lipase 40 U/L (8-78); Potassium 4.4 mmol/L (3.5-5.1); Protein, Total 7.3 g/dL (5.8-8.1); Sodium 138 mmol/L (136-145)
[2023-05-27 16:06] LABS: Bacteria/HPF None Seen HPF (None Seen); Bilirubin Negative (Negative); Blood, Urine Negative (Negative); CAUTI Indications for Culture Alt mental st,lethar; Clarity Clear (Clear); Glucose, Urine (Dipstick) 100 mg/dL (Negative); Ketone, Urine Negative (Negative); Leukocyte Negative Leu/uL (Negative); Nitrite Negative (Negative); Protein, Urine (Dipstick) 30 mg/dL (Neg-Trace); RBC/HPF 0-3 HPF (0-3); Specific Gravity, Urine 1.024 (1.002-1.036); Squamous Epithelial None Seen HPF (0-3); WBC/HPF 0-3 HPF (0-3)
[2023-05-27 16:09] LABS: Urine Culture Reflex No No
[2023-05-27 16:17] LABS: Troponin I Less than 0.010 ng/mL (< 0.028)
== END 2023-05-27 18:26 | disposition home or self-care (01) ==
LOC: ERS 13:53
DX: K59.00 Constipation, unspecified (principal); E86.0 Dehydration; I10 Essential (primary) hypertension
CPT/HCPCS: 36415; 51701; 71045; 74177; 80053; 81001; 83605; 83690; 84484; 93005; 96360

== ENCOUNTER 2023-06-08 19:40 | Emergency (ER) | payer MEDICARE ==
[2023-06-08 20:26] LABS: #Eosinphils 0.1 thou/uL (0.0-0.7); #Monocytes 0.8 thou/uL (0.11-0.59); #Neutrophils 6.5 thou/uL (1.40-6.50); %Basophils 0.2 % (0.0-1.0); %Eosinophils 0.8 % (0.0-10.0); %Lymphocytes 14.4 % (21.0-51.0); %Monocytes 8.9 % (0.0-10.0); %Neutrophils 74.9 % (42.0-75.0); Hematocrit 32.8 % (36.0-47.0); Hemoglobin 10.1 g/dL (12.0-16.0); Mean Corpuscular HGB CONC 30.8 g/dL (32.0-36.0); Mean Corpuscular Hemoglobin 33.4 pg (27.0-31.0); Mean Corpuscular Volume 108.6 fl (78.0-98.0); Mean Platelet Volume 9.5 fL (7.4-10.4); Platelet Count 291 10x3/uL (130-400); Red Blood Cell (RBC) Count 3.02 mill/uL (4.20-5.40); White Blood Cell (WBC) Count 8.7 10x3/uL (4.8-10.8)
[2023-06-08 20:51] LABS: ALT (SGPT) 13 U/L (8-55); AST (SGOT) 23 U/L (5-34); Albumin 4.3 g/dL (3.4-4.8); Alkaline Phosphatase 176 U/L (40-110); Anion Gap 21 mmol/L (10-20); BUN (Urea Nitrogen) 21 mg/dL (9.8-20.1); Bilirubin, Total 0.9 mg/dL (0.2-1.2); Calc. Creatinine Clearance 0 mL/min (70-130); Calcium 9.9 mg/dL (7.8-10.44); Carbon Dioxide 20 mmol/L (23-31); Chloride 104 mmol/L (98-107); Estimated GFR 29; Globulin 4.1 g/dL (2.4-3.5); Glucose 110 mg/dL (83-110); Lipase 58 U/L (8-78); Potassium 4.7 mmol/L (3.5-5.1); Protein, Total 8.4 g/dL (5.8-8.1); Sodium 140 mmol/L (136-145)
[2023-06-08] MEDS ORDERED: Ibuprofen 100 MG/5 ML UDCUP ONE (21:52)
[2023-06-08] MEDS ORDERED: Acetaminophen 325 MG TAB ONE (22:10)
[2023-06-08 23:33] LABS: Bacteria/HPF None Seen HPF (None Seen); Bilirubin Negative (Negative); Blood, Urine Negative (Negative); CAUTI Indications for Culture Pelvic or flank pain; Clarity Clear (Clear); Glucose, Urine (Dipstick) Normal (Negative); Ketone, Urine Negative (Negative); Leukocyte 500 Leu/uL (Negative); Nitrite Negative (Negative); Protein, Urine (Dipstick) Negative (Neg-Trace); RBC/HPF 0-3 HPF (0-3); Squamous Epithelial 0-3 HPF (0-3); Urobilinogen Normal mg/dL (Less than 2); WBC/HPF 21-50 HPF (0-3); pH, Urine 5.5 (5.0-9.0)
[2023-06-08 23:35] LABS: Urine Culture Reflex Yes Yes
[2023-06-09] MEDS ORDERED: Sodium Chloride 0.9% 100 ML ONE (00:28)
[2023-06-09] MEDS ORDERED: cefTRIAXone (ROCEPHIN) 1 GM VIAL ONE (00:28)
[2023-06-09] MEDS ORDERED: Cefepime 1 GM in Sodium Chloride 0.9% 100 ML IVPB SCH (00:30)
[2023-06-09] MEDS ORDERED: Fleet Saline Enema 133 ML BOT ONE (01:38)
[2023-06-09 04:35] LABS: Anion Gap 12 mmol/L (10-20); BUN (Urea Nitrogen) 20 mg/dL (9.8-20.1); Calc. Creatinine Clearance 0 mL/min (70-130); Calcium 8.4 mg/dL (7.8-10.44); Carbon Dioxide 24 mmol/L (23-31); Chloride 108 mmol/L (98-107); Estimated GFR 36; Glucose 112 mg/dL (83-110); Potassium 3.4 mmol/L (3.5-5.1); Sodium 141 mmol/L (136-145)
== END 2023-06-09 04:59 | disposition home or self-care (01) ==
LOC: ERS 19:40
DX: K59.00 Constipation, unspecified (principal); E86.0 Dehydration; I11.0 Hypertensive heart disease with heart failure; I50.9 Heart failure, unspecified
CPT/HCPCS: 36415; 51701; 74176; 80048; 80053; 81001; 83605; 83690; 85025; 87040; 87086; 96361; 96365; J0692; J0696; J3490